=== PATIENT | female | born 1970 | race African-American/Black ===

== ENCOUNTER 2016-09-15 14:14 | Emergency (ER) | payer BC ==
[~2016-09-15] VITALS: Ht 160 cm; Wt 65.3 kg
[~2016-09-15 14:14] MED LIST: AMLO-110 PO; AMOX875T PO; LORA-741 PO; LOSA1TAB PO; MULT-506 PO; OMEP40CA PO; PSEU60TA80 PO; TYLOTC500 PO; [UNRECOGNIZED DRUG - CODE] TOP
[2016-09-15 14:19] VITALS: TEMP 37.1; Ht 160 cm; Wt 65.3 kg
[2016-09-15] MEDS ORDERED: VORT1TAB PO (15:13)
[2016-09-15] MEDS ORDERED: AZAT50TA17 PO (15:13)
[2016-09-15 15:21] LABS: BASO % 0.4 %; BASO ABS # 0.03 K/uL (0-0.2); COMPLETE YES; EOS % 3.3 %; HEMATOCRIT 39.4 % (37-47); IG% 0.3 %; LYMPH % 12.9 %; LYMPH ABS # 1.03 K/uL (1.2-3.4); MEAN CELL VOLUME 92.5 fL (80-100); MEAN CORPUSCULAR HEMOGLOBIN 31.5 pg (25-34); MEAN PLATELET VOLUME 10.1 fL (7.4-10.4); MONO % 10.4 %; NEUT % 72.7 %; PLATELET COUNT 265 K/uL (130-400); RED BLOOD COUNT 4.26 M/uL (4.2-5.4)
[2016-09-15 15:37] LABS: BUN/CREATININE RATIO 8.4 (10-20); CALCIUM 8.2 mg/dl (8.5-10.1); CREATININE 1.6 mg/dl (0.60-1.20); POTASSIUM 3.6 mmol/L (3.5-5.1)
[2016-09-15 15:38] LABS: MANUAL MICROSCOPIC REQUIRED? YES; REVIEW REQ? NO; SULFASALICYLIC ACID NEG (NEG); URINE APPEARANCE CLEAR (CLEAR); URINE COLOR ORANGE
[2016-09-15 15:45] LABS: URINE BACTERIA NEG (NEG)
[2016-09-15 17:31] VITALS: BP 137/95; PULSE 78; O2SAT 97
--- NOTE | 2016-09-15 18:31 | EMERGENCY ROOM VISIT NOTE ---
History Report prepared by Jorge Alberto: Payal Herrera Under the Supervision of: Dr. Shabbir Hall D.O. First contact with patient: 14:37 Chief Complaint: SORETHROAT Stated Complaint: SWELLING ON BOTH SIDES OF FACE, FATIGUE History of Present Illness The patient is a 45 year old female who presents to the Emergency Room with complaints of constant sore throat beginning last night. 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 She complains of tiredness, bilateral facial pain, muscle aches that may not be new , and swelling of the jaw. The patient denies cough, runny nose, fevers, chest pain, shortness of breath, nausea, vomiting, and diarrhea. She reports that she is vaccinated. She notes that she had a urethral stent placed last weak for a fibroid that is pressing on her uterus. The patient states that her doctor wants her to have a hysterectomy but she would like to see other options. She notes that she doesn't think anyone else around her has been sick. Source of History: patient Onset: last night Position: throat Quality: other (sore/swelling) Timing: constant Associated Symptoms: No SOB, No chest pain, No cough, No diarrhea, No fevers , No nausea, No vomiting Note: She complains of tiredness, bilateral facial pain, muscle aches that may not be new, and swelling of the jaw. The patient denies runny nose. Review of Systems See HPI for pertinent positives & negatives. A total of 10 systems reviewed and were otherwise negative. Past Medical & Surgical Medical Problems: (1) BRICK HANDLER demyelination (2) Crohn's disease Family History Cancer Heart disease Hypertension Seizures Social History Smoking Status: Former Smoker Alcohol Use: none Drug Use: none Marital Status: Housing Status: lives with family Occupation Status: employed Current/Historical Medications Scheduled Acetaminophen (Tylenol), 1,000 MG PO UD Amlodipine (Norvasc), 10 MG PO HS Azathioprine (Imuran), 50 MG PO BID Losartan Potassium (Cozaar), 25 MG PO QAM Multivitamin (Multivitamin), 1 TAB PO HS Vortioxetine HBr (Trintellix), 1 TAB PO DAILY Scheduled PRN Lorazepam (Ativan), 0.5 MG PO Q6H PRN for Anxiety/Agitation Allergies Coded Allergies: Sulfa Antibiotics (Verified Allergy, Intermediate, FACIAL SWELLING, 09/15/16 ) Nitrofurantoin (Verified Allergy, Unknown, RASH, 09/15/16) Lisinopril (Verified Adverse Reaction, Unknown, COUGH, 09/15/16) Sertraline (Verified Adverse Reaction, Unknown, BP ELEVATION, 09/15/16) Physical Exam Vital Signs Date Time Temp Pulse Resp B/P Pulse Ox O2 Delivery O2 Flow Rate FiO2 09/15/16 17:31 78 16 137/95 97 09/15/16 15:35 70 18 124/80 100 Room Air 09/15/16 14:31 99 Room Air 09/15/16 14:19 37.1 82 18 133/84 100 Room Air Physical Exam GENERAL: sitting up in bed, no distress, non-toxic EYE EXAM: normal conjunctiva OROPHARYNX: Face swelling over the bilateral parotids and angles of the mandible , no exudate, no erythema, lips, buccal mucosa, and tongue normal and mucous membranes are moist NECK: supple, no nuchal rigidity, no adenopathy, non-tender LUNGS: Clear to auscultation. Normal chest wall mechanics HEART: no murmurs, S1 normal and S2 normal ABDOMEN: abdomen soft, non-tender, normo-active bowel sounds, no masses, no rebound or guarding. BACK: Back is symmetrical on inspection and there is no deformity, no midline tenderness, no CVA tenderness. SKIN: no rashes and no bruising UPPER EXTREMITIES: upper extremities are grossly normal. LOWER EXTREMITIES: No pitting edema. NEURO EXAM: Normal sensorium, cranial nerves II-XII grossly intact, normal speech, no gross weakness of arms, no gross weakness of legs. Medical Decision & Procedures Laboratory Results 09/15/16 15:00 Red Blood Count 4.26, Mean Corpuscular Volume 92.5, Mean Corpuscular Hemoglobin 31.5, Mean Corpuscular Hemoglobin Concent 34.0, Mean Platelet Volume 10.1, Neutrophils (%) (Auto) 72.7, Lymphocytes (%) (Auto) 12.9, Monocytes (%) (Auto) 10.4, Eosinophils (%) (Auto) 3.3, Basophils (%) (Auto) 0.4, Neutrophils # (Auto ) 5.83, Lymphocytes # (Auto) 1.03, Monocytes # (Auto) 0.83, Eosinophils # (Auto ) 0.26, Basophils # (Auto) 0.03 3/5/17 15:00 Test 09/15/16 14:18 09/15/16 14:58 09/15/16 15:00 09/15/16 15:56 Influenza Type A Antigen Neg for Influ A (NEG) Influenza Type B Antigen Neg for Influ B (NEG) Urine Color ORANGE Urine Appearance CLEAR (CLEAR) Urine pH (4.5-7.5) Urine Specific [place] (1.000-1.030) Urine Protein NEG (NEG) Urine Glucose (UA) (NEG) Urine Ketones (NEG) Urine Occult Blood (NEG) Urine Nitrite (NEG) Urine Bilirubin (NEG) Urine Urobilinogen (NEG) Urine Leukocyte Esterase (NEG) Urine RBC 5-10 /hpf (0-4) Urine WBC 1-5 /hpf (0-5) Urine Epithelial Cells 20-30 /lpf (0-5) Urine Bacteria NEG (NEG) White Blood Count 8.00 K/uL (4.8-10.8) Red Blood Count 4.26 M/uL (4.2-5.4) Hemoglobin 13.4 g/dL (12.0-16.0) Hematocrit 39.4 % (37-47) Mean Corpuscular Volume 92.5 fL (80-100) Mean Corpuscular Hemoglobin 31.5 pg (25-34) Mean Corpuscular Hemoglobin Concent 34.0 g/dl (32-36) Platelet Count 265 K/uL (130-400) Mean Platelet Volume 10.1 fL (7.4-10.4) Neutrophils (%) (Auto) 72.7 % Lymphocytes (%) (Auto) 12.9 % Monocytes (%) (Auto) 10.4 % Eosinophils (%) (Auto) 3.3 % Basophils (%) (Auto) 0.4 % Neutrophils # (Auto) 5.83 K/uL (1.4-6.5) Lymphocytes # (Auto) 1.03 K/uL (1.2-3.4) Monocytes # (Auto) 0.83 K/uL (0.11-0.59) Eosinophils # (Auto) 0.26 K/uL (0-0.5) Basophils # (Auto) 0.03 K/uL (0-0.2) RDW Standard Deviation 43.1 fL (36.4-46.3) RDW Coefficient of Variation 12.8 % (11.5-14.5) Immature Granulocyte % (Auto) 0.3 % Immature Granulocyte # (Auto) 0.02 K/uL (0.00-0.02) Anion Gap 11.0 mmol/L (3-11) Est Creatinine Clear Calc Drug Dose 41.2 ml/min Estimated GFR () 45.3 Estimated GFR (Non- 39.1 BUN/Creatinine Ratio 8.4 (10-20) Calcium Level 8.2 mg/dl (8.5-10.1) Laboratory results per my review. ED Course ED COURSE: Vital signs were reviewed and normal The patients medical record was reviewed The above diagnostic studies were performed and reviewed. ED treatments and interventions as stated above. 1438: The patient was evaluated in room A2. A complete history and physical examination was performed. 1541: I spoke to Dr. Samara Anderson. She agrees with the plan. 1725: I updated the patient. 1732: Upon reevaluation, the patient is hemodynamically stable.I discussed my findings with the patient and she understands and agrees with the treatment plan. Based on the patients age, coexisting illnesses, exam and lab findings the decision to treat as an outpatient was made. The patient remained stable while under my care. The patient appeared well at the time of discharge. Medical Decision Differential diagnosis includes etiologies such as sepsis, UTI, pneumonia, metabolic, electrolyte abnormalities, cardiac sources, intracerebral event, toxicologic, neurologic, as well as others were entertained. Patient is a 45-year-old female who presents the ER for bilateral swelling of her face along with a sore throat and myalgias. She notes that this started a couple days goes. She does works at [employer]. On exam patient does have bilateral swelling on the sore throat and his symptoms are consistent with possible mumps. Blood work and vehicle swabs were obtained. I discussed case with Mrs. Hamilton. Patient was instructed that she not leave the house and according to the next 5 days. She should try not to have any contact with her . If her develops any systems he'll return to the ER or PCP. UA was unremarkable. I do not believe that any of the symptoms are related to the recent stent that she had placed on this past Friday. Patient was discharged and will remain quarantined until the results of her testing. Discussed with Pt concerning signs and symptoms to watch out for. Pt was instructed to follow up with their PCP and discussed with the patient their option to return to the ED at anytime for persistent or worsening symptoms. The appropriate anticipatory guidance and out-patient management, including indications for return to the emergency department, were explained at length to the patient and understood. Consults Time Called: 1538 Consulting Physician: Dr. Anderson Returned Call: [address] Samara Anderson. She agrees with the plan. Impression Primary Impression: Mumps Additional Impressions: Parotitis Sore throat Scribe Attestation The scribe's documentation has been prepared under my direction and personally reviewed by me in its entirety. I confirm that the note above accurately reflects all work, treatment, procedures, and medical decision making performed by me. Departure Information Dispostion Home / Self-Care Referrals Nolan Brooks M.D.(FLIP) (PCP) Forms HOME CARE DOCUMENTATION FORM, IMPORTANT VISIT INFORMATION Patient Instructions ED Mumps, My [facility] Additional Instructions Please follow up with your primary care doctor with in the next 24 hours. Any worsening of your symptoms, please return to the ED immediately. Increased swelling of her throat, inability to drink, persistent fevers, or any other concerning signs or symptoms from your standpoint. You should be quarantined/remain away and had no contact with anyone for the next 5 days until your titers come back. You will be contacted by the Department of Health. Please do not have any contact with her either as this could possibly spread virus. If your starts to have any symptoms he should follow-up with his primary care doctor. Problem Qualifiers Primary Impression: Mumps Mumps complication type: without complication Qualified Codes: B26.9 - Mumps without complication
[2017-03-19] MEDS ORDERED: RETIN A TOP (13:11)
== END 2016-09-15 17:33 | disposition home or self-care (01) ==
LOC: C.EDB 14:15 → C.EDA 17:33
DX: B26.9 Mumps without complication (principal); J02.9 Acute pharyngitis, unspecified; R53.83 Other fatigue; R51 Headache; K50.90 Crohn's disease, unspecified, without complications; G37.9 Demyelinating disease of central nervous system, unspecified; Z79.899 Other long term (current) drug therapy; Z88.1 Allergy status to other antibiotic agents; Z88.2 Allergy status to sulfonamides; Z88.8 Allergy status to other drugs, medicaments and biological substances; Z87.891 Personal history of nicotine dependence; Z82.49 Family history of ischemic heart disease and other diseases of the circulatory system; Z82.0 Family history of epilepsy and other diseases of the nervous system

== ENCOUNTER → 2017-02-26 | Outpatient (CLI) | payer BC ==
[~2017-02-26] MED LIST changes: -AMOX875T PO; +AZAT50TA17 PO; +GADAVIST IV PRN; +MTR600X PO; -OMEP40CA PO; +OXYC-57 PO; -PSEU60TA80 PO; +RETIN A TOP; +TRAM-10 PO; +VORT1TAB PO; -[UNRECOGNIZED DRUG - CODE] TOP
--- NOTE | 2017-02-26 18:37 | DIAGNOSTIC IMAGING REPORT ---
BRAIN COMBO CLINICAL HISTORY: WEB WEAVER demyelinating disorder COMPARISON STUDY: 06/05/2016 TECHNIQUE: Utilizing a 1.5 Suki magnet and dedicated coil, multiplanar, multiecho imaging of the brain was performed pre and postcontrast administration. IV administration of 8 mL of Gadavist contrast was uneventful. FINDINGS: Generally improved exam compared to the prior study. The large area of abnormal signal involving the anterior quique, as well as mid Has considerably diminished in overall volume as well as geographic extent. Current maximum linear dimension is 1 cm with a 4 mm enhancing central component. This is considerably diminished from the prior study with the enhancement previously described involving the anterior right frontal lobe essentially resolved.. There is a new right frontal enhancing focus measuring 2 mm. A new focus of cortical increase in signal measuring 9 mm is identified over the right posterior frontal region. This area is associated with 2 enhancing nodules measuring 3 and 4 mm respectively. No additional focal areas of enhancement are appreciated. Sella and parasellar regions are unremarkable. IMPRESSION: 1. Mixed but generally improved appearance as compared to the prior exam. 2. Large area of demyelination involving the pontine medullary region is considerably diminished in volume as well as considerably improved and postcontrast enhancement. 3. Improved medial right frontal lobe lesion which is not currently identified. 4. New interval focus of increased signal posterior right frontal lobe in a cortical location with 2 small associated enhancing foci. 5. New small focus of enhancement right frontal lobe slightly lateral to the prior study. 6. Overall, considerable improvement despite the interval development of several small new foci of demyelination. 7. No abnormal signal characteristics on the diffusion component of the study The above report was generated using voice recognition software. It may contain grammatical, syntax or spelling errors. Electronically signed by: Da Wilhelm M.D. 02/26/2017 6:35 PM Dictated Date/Time: 02/26/2017 6:24 PM
== END | disposition home or self-care (01) ==
LOC: C.MRI 17:27
PROVIDERS: ATTEND Psychiatry & Neurology Neurology
DX: G37.9 Demyelinating disease of central nervous system, unspecified (principal); G93.89 Other specified disorders of brain

== ENCOUNTER 2017-03-28 05:07 | Inpatient (IN) | payer BC ==
[2017-03-19 13:12] VITALS: BMI 25.0
--- NOTE | 2017-03-19 13:48 | PAT Medication Instructions ---
Service Date Mar 19, 2017. Current Home Medication List Acetaminophen (Tylenol), 500 MG PO PRN Amlodipine (Norvasc), 10 MG PO HS Azathioprine (Imuran), 50 MG PO BID Lorazepam (Ativan), 0.5 MG PO Q6H PRN for Anxiety/Agitation Losartan Potassium (Cozaar), 25 MG PO QAM Multivitamin (Multivitamin), 1 TAB PO QPM Vortioxetine HBr (Trintellix), 1 TAB PO QPM [Retin A Cr], 1 DOSE TOP DAILY Medication Instructions For Your Scheduled Surgery - Check with surgeon/prescribing physician for instructions: Azathioprine (Imuran), 50 MG PO BID - Hold the following medications 24 hours prior to surgery: [Retin A Cr], 1 DOSE TOP DAILY - Hold the following medications the morning of surgery: Losartan Potassium (Cozaar), 25 MG PO QAM - Take the following medications the morning of surgery with a sip of water: Lorazepam (Ativan), 0.5 MG PO Q6H PRN for Anxiety/Agitation (if needed) Acetaminophen (Tylenol), 500 MG PO PRN (if needed) - Take the following medications as scheduled the night before surgery: Multivitamin (Multivitamin), 1 TAB PO QPM Lorazepam (Ativan), 0.5 MG PO Q6H PRN for Anxiety/Agitation (if needed) Acetaminophen (Tylenol), 500 MG PO PRN (if needed) Amlodipine (Norvasc), 10 MG PO HS Vortioxetine HBr (Trintellix), 1 TAB PO QPM If you have any questions please call us at [phone] or [phone] or [phone]
[2017-03-19 14:29] LABS: BASO % 0.4 %; BASO ABS # 0.03 K/uL (0-0.2); COMPLETE YES; EOS % 4.5 %; HEMATOCRIT 40.6 % (37-47); IG% 0.1 %; MEAN CELL VOLUME 91.4 fL (80-100); MEAN CORPUSCULAR HEMOGLOBIN 29.7 pg (25-34); MEAN CORPUSCULAR HGB CONC 32.5 g/dl (32-36); MONO % 11.3 %; NEUT % 66.7 %; PLATELET COUNT 331 K/uL (130-400); RED BLOOD COUNT 4.44 M/uL (4.2-5.4); WHITE BLOOD COUNT 7.07 K/uL (4.8-10.8)
[2017-03-19 14:41] LABS: BUN/CREATININE RATIO 8.5 (10-20); CALCIUM 8.8 mg/dl (8.5-10.1); CREATININE 1.5 mg/dl (0.60-1.20); POTASSIUM 4.2 mmol/L (3.5-5.1)
[~2017-03-28] VITALS: Ht 160 cm; Wt 65.2 kg
[2017-03-28] VITALS (11 sets, daily range): BP systolic 94–115; BP diastolic 54–84; PULSE 74–98; TEMP 36.3–37; O2SAT 94–100; Ht 160 cm; Wt 65.2 kg
[~2017-03-28 05:07] MED LIST changes: -GADAVIST IV PRN; -MTR600X PO; -OXYC-57 PO; -TRAM-10 PO
[2017-03-28] MEDS ORDERED: CEFAZOLIN 2000 MG/60 ML D5W 50 ML IV SCH (06:00)
[2017-03-28] MEDS ORDERED: LACTATED RINGER'S 1000ML 1,000 ML IV SCH ×2 (06:00)
[2017-03-28 06:34] LABS: BASO % 0.7 %; BASO ABS # 0.05 K/uL (0-0.2); EOS % 5.2 %; HEMATOCRIT 37.4 % (37-47); IG% 0.1 %; LYMPH % 20.8 %; LYMPH ABS # 1.43 K/uL (1.2-3.4); MEAN CELL VOLUME 89.9 fL (80-100); MEAN CORPUSCULAR HEMOGLOBIN 30.8 pg (25-34); MEAN PLATELET VOLUME 9.3 fL (7.4-10.4); MONO % 8.6 %; NEUT % 64.6 %; PLATELET COUNT 278 K/uL (130-400); RED BLOOD COUNT 4.16 M/uL (4.2-5.4); WHITE BLOOD COUNT 6.89 K/uL (4.8-10.8)
--- NOTE | 2017-03-28 06:40 | History & Physical Bridge Note ---
H&P Re-Evaluation Bridge Note: I have examined the patient, reviewed the History & Physical and in the interval since the performance of the History & Physical I have noted the following changes of clinical significance: No changes noted
[2017-03-28] MEDS ORDERED: ONDANSETRON INJ 2 MG/ML 2 ML VIAL ONE (06:41)
[2017-03-28] MEDS ORDERED: PROPOFOL IV EMULSION 10 MG/ML 20 ML VIAL IV ONE (06:41)
[2017-03-28] MEDS ORDERED: DEXAMETHASONE SOD INJ 4 MG/ML VIAL ONE ×2 (06:41→07:30)
[2017-03-28] MEDS ORDERED: LIDOCAINE HCL 2% 2 ML VIAL (20MG/ML) ONE (06:41)
[2017-03-28] MEDS ORDERED: GLYCOPYRROLATE INJ 0.2 MG/ML VIAL ONE (06:41)
[2017-03-28] MEDS ORDERED: FENTANYL CITRATE INJ 50 MCG/1 ML 2 ML VIAL ONE ×2 (06:41→07:19)
[2017-03-28] MEDS ORDERED: NEOSTIGMINE METHYLSULFATE 5 MG/5 ML SYR ONE (06:41)
[2017-03-28] MEDS ORDERED: MIDAZOLAM HCL 1 MG/ML 2ML VIAL ONE (06:41)
[2017-03-28 06:43] LABS: COMPLETE YES; MEAN CORPUSCULAR HGB CONC 34.2 g/dl (32-36)
[2017-03-28] MEDS ORDERED: EpHEDrine SULFATE INJ 50 MG/ML AMP IV PRN (06:45)
[2017-03-28] MEDS ORDERED: ONDANSETRON INJ 2 MG/ML 2 ML VIAL IV PRN ×2 (06:45→10:00)
[2017-03-28] MEDS ORDERED: FENTANYL CITRATE INJ 50 MCG/1 ML 2 ML VIAL IV PRN (06:45)
[2017-03-28] MEDS ORDERED: ATROPINE SULFATE 0.1 MG/ML 5ML SYR IV PRN (06:45)
[2017-03-28] MEDS ORDERED: METHYLENE BLUE 0.5% 10 ML VIAL ONE (06:52)
[2017-03-28] MEDS ORDERED: BUPIVACAINE 0.5 % 5 MG/1 ML MPF 30ML VIAL ONE (06:52)
[2017-03-28] MEDS ORDERED: MINERAL OIL LIGHT 10 ML BTL ONE (06:52)
[2017-03-28] MEDS ORDERED: EpHEDrine SULFATE 50MG/5ML SYR ONE (07:30)
[2017-03-28] MEDS ORDERED: ESMOLOL HCL 10 MG/ML 10 ML VIAL ONE (07:30)
[2017-03-28] MEDS ORDERED: HYDROmorphone INJ 2 MG/ML SYR/VIAL ONE (07:34)
[2017-03-28] MEDS ORDERED: ROCURONIUM BROMIDE 10 MG/ML 5 ML VIAL IV ONE (07:37)
[2017-03-28] MEDS ORDERED: CISATRACURIUM BESYLATE IV SOLN 2 MG/ML 10 ML VIAL ONE (07:37)
--- NOTE | 2017-03-28 09:58 | [facility] Post Operative Brief Note ---
Immediate Operative Summary Operative Date Mar 28, 2017. Pre-Operative Diagnosis heavy menstrual bleeding; fibroid uterus Post-Operative Diagnosis heavy menstrual bleeding; fibroid uterus Procedure(s) Performed Total Laparoscopic Hysterectomy, Cystoscopy Surgeon Dr. 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 Kadie Egan, Dr. Tafoya Estimated Blood Loss 25mL Findings Upon laparoscopic exam uterus was enlarged from known fibroid uterus. Bilateral ovaries and fallopian tubes were grossly normal. The cervix and uterus was successfully removed laparoscopically an removed from the vagina. Once the vaginal cuff was closed laparoscopically a cystoscopy was performed noting no injury or suture within the bladder wall. Bilateral ureteral openings spilled clear urine indicating bilateral ureters were intact. Patient tolerated the surgery well and was sent to recovery with stable vital signs. Fluids (cc crystalloids) 1400 Specimens A: uterus and cervix Drains Burns to gravity Anesthesia General Complication(s) None Disposition Recovery Room / PACU
[2017-03-28] MEDS ORDERED: BISACODYL 10 MG SUPP PR PRN (10:00)
[2017-03-28] MEDS ORDERED: SENNA 8.6 MG TAB PO PRN (10:00)
[2017-03-28] MEDS ORDERED: IBUPROFEN 600 MG TAB PO PRN (10:00)
[2017-03-28] MEDS ORDERED: LORAZEPAM 0.5 MG TAB PO PRN (10:00)
[2017-03-28] MEDS ORDERED: MAGNESIUM HYDROXIDE SUSP 30 ML UDC PO PRN (10:00)
[2017-03-28] MEDS ORDERED: OXYCODONE/ACETAMINOPHEN 5-325 TAB PO PRN (10:00)
--- NOTE | 2017-03-28 10:37 | OPERATIVE REPORT ---
DATE OF OPERATION: 03/28/2017 PREOPERATIVE DIAGNOSES: 1. Heavy menstrual bleeding. 2. Fibroid uterus. POSTOPERATIVE DIAGNOSES: Same. OPERATIVE PROCEDURE: Total laparoscopic hysterectomy and cystoscopy. SURGEON: Dr. Felipe Mueller. FORENSIC NURSE: Dr. Ghada Egan and Dr. Allan Tafoya. ANESTHESIA: General. ESTIMATED BLOOD LOSS: 25 mL. IV FLUIDS: 1400 mL crystalloids. URINE OUTPUT: 1200 mL clear yellow urine. SPECIMENS: Uterus and cervix to pathology. DRAINS: Burns to gravity. COMPLICATIONS: None. DISPOSITION: Recovery room. OPERATIVE FINDINGS: Upon laparoscopic exam, uterus was enlarged from a known fibroid uterus, measuring approximately 14 cm. Bilateral ovaries and fallopian tubes were grossly normal. The cervix and uterus were successfully removed laparoscopically and removed from the vagina. Once the vaginal cuff was closed laparoscopically, a cystoscopy was performed noting no injury or suture within the bladder wall. Bilateral ureteral openings expelled clear urine, indicating bilateral ureters were intact. The patient tolerated the surgery well and was sent to recovery with stable vital signs. OPERATIVE PROCEDURE IN DETAIL: The patient was taken to the operating room, where general anesthesia was administered. Once anesthesia was found to be adequate, the patient was placed in the dorsal lithotomy position and was prepped and draped in a manner appropriate for procedure. A weighted speculum was placed into the vagina and the anterior lip of the cervix was grasped with single tooth tenaculum. A medium VCare uterine manipulator was placed within the uterus in an anteverted fashion and was suture ligated to the cervix at 12 o'clock and 6 o'clock positions with 0 Vicryl suture. Once the VCare was in place, a single-tooth tenaculum and weighted speculum were removed from the vagina. A sterile Burns catheter was placed within the bladder and remained indwelling throughout the entire procedure. The patient was then ready for the laparoscopic portion of the procedure. Attention was directed towards the abdomen, where 0.5% Marcaine was injected above the umbilicus on the left-sided mid clavicular point and an 11-mm skin incision was made horizontally at the upper left abdominal quadrant. A Veress needle was then placed within the abdomen. Normal saline was injected with no fecal content aspirated. A pneumoperitoneum was then created. The Veress needle was then removed and an 11-mm trocar was placed within the abdomen under direct laparoscopic visualization. A second 11-mm skin incision was made on the left lower side of the abdomen and an 11-mm trocar was placed within the abdomen under direct laparoscopic visualization. A third 11-mm skin incision was made on the right lower side of the abdomen and a third 11-mm trocar was placed within the abdomen under direct laparoscopic visualization. The patient was then placed in a steep Trendelenburg position and the bowel contents were displaced superiorly away from the pelvis. A thorough examination of the abdomen and pelvis was then performed. The uterus was noted to be enlarged from known fibroid uterus. Attention was directed towards the right adnexa, where the right round ligament was cauterized and transected. The right uteroovarian ligament was cauterized and transected, continued inferiorly through the broad ligament, cauterizing and transecting as it continued inferiorly. Attention was then directed towards the left adnexa, in which likewise the left round ligament was cauterized and transected. The left uteroovarian ligament was cauterized and transected, continued inferiorly through the broad ligament cauterizing and transecting as it was continued inferiorly. The broad ligament was and the anterior leaf of the broad ligament was cauterized and transected across the lower uterine segment, creating a bladder flap. The same was done on the right side. The broad ligament was and the anterior leaf of the broad ligament was cauterized and transected, completing the bladder flap across the lower uterine segment. The bladder was pushed away from the uterus. Bilateral ascending uterine arteries were then cauterized and transected, continued inferiorly through the cardinal uterosacral complex bilaterally. Once we were at the level of the VCare, the uterus and cervix were amputated away from the vaginal cuff with the LigaSure in a circumferential manner. Once the cervix and uterus were successfully amputated, it was delivered through the vagina. A sterile glove was then placed within the vagina to maintain the pneumoperitoneum. The pelvis was then copiously irrigated with warm saline solution. Any residual bleeding was fulgurated with the LigaSure. The vaginal cuff was then closed with 0 Polysorb suture with the EndoStitch in a continuous locking fashion. Excellent hemostasis was noted. The peritoneum was then reapproximated with 0 Polysorb suture again with the EndoStitch in a continuous running fashion. Excellent hemostasis was noted. The pelvis was then irrigated again, noting hemostasis. At this point, all instruments were removed from the trocars and as much CO2 gas was allowed to percolate through open cannulas. Attention was then directed towards the perineum, where the sterile glove was removed from the vagina and the Burns catheter was removed from the bladder. The cystoscope was then introduced into the bladder. A thorough examination was performed noting no injury to the bladder wall or suture within the bladder wall as well. Bilateral ureteral openings expelled clear urine, indicating bilateral ureters were intact. At this point, the cystoscope was removed and a second sterile Burns catheter was placed within the bladder. At this point, the procedure was found to be complete. All trocars were removed from the abdomen. The fascia of all 3 incisions were closed with 0 Vicryl suture in a [id number] interrupted fashion. All 3 skin incisions were closed with 4-0 Monocryl in a subcuticular fashion. Excellent hemostasis was noted. The patient tolerated the procedure well and was sent to recovery with stable vital signs. All sponge and instrument counts were found to be correct x2. I attest to the content of the Intraoperative Record and any orders documented therein. Any exceptions are noted below. KENNEDY
--- NOTE | 2017-03-28 10:42 | Anesthesiology Progress Note ---
Anesthesia Post Op Note Date & Time Mar 28, 2017 at 10:42 Vital Signs Pain Intensity: 2 Vital Signs Past 12 Hours Date Time Temp Pulse Resp B/P (MAP) Pulse Ox O2 Delivery O2 Flow Rate FiO2 03/28/17 10:37 36.2 03/28/17 10:35 77 16 108/62 95 03/28/17 10:35 78 16 03/28/17 10:30 74 16 108/60 98 03/28/17 10:30 74 16 03/28/17 10:25 77 13 105/57 94 03/28/17 10:25 77 13 03/28/17 10:20 79 12 03/28/17 10:20 79 12 111/65 97 03/28/17 10:15 81 12 03/28/17 10:15 81 12 105/66 94 03/28/17 10:10 84 13 105/63 96 03/28/17 10:10 83 13 03/28/17 10:08 109/61 03/28/17 10:00 36.1 88 16 119/68 97 Oxymask 10 03/28/17 05:58 36.8 74 16 115/84 (94) 100 Room Air Notes Mental Status: alert / awake / arousable, participated in evaluation Pt Amnestic to Procedure: Yes Nausea / Vomiting: adequately controlled Pain: adequately controlled Airway Patency, RR, SpO2: stable & adequate BP & HR: stable & adequate Hydration State: stable & adequate Anesthetic Complications: no major complications apparent
[2017-03-28] MEDS: LACTATED RINGER'S 1000ML 1,000 ML IV SCH ×2 (15:06→22:57)
[2017-03-28] MEDS ORDERED: TRINTELLIX~ORDER AWAITING ACTION SCH (16:00)
[2017-03-28] MEDS: KETOROLAC TROMETHAMINE 30 MG/ML VIAL IV. PRN (17:42)
[2017-03-28 19:12] LABS: HEMATOCRIT 33.4 % (37-47)
[2017-03-28] MEDS ORDERED: AMLODIPINE BESYLATE 5 MG TAB PO SCH (21:00)
[2017-03-28] MEDS: AZATHIOPRINE 50 MG TAB PO SCH (21:00)
[2017-03-28] MEDS ORDERED: MULTIVITAMIN TAB PO SCH (21:00)
[2017-03-29] MEDS: KETOROLAC TROMETHAMINE 30 MG/ML VIAL IV. PRN (00:14)
[2017-03-29 00:25] VITALS: BP 112/65; PULSE 92; TEMP 37; O2SAT 97
[2017-03-29 04:00] VITALS: BP 107/67; PULSE 86; TEMP 37.1
[2017-03-29 06:48] LABS: BASO % 0.1 %; BASO ABS # 0.01 K/uL (0-0.2); COMPLETE YES; EOS % 0.5 %; HEMATOCRIT 31.6 % (37-47); IG% 0.2 %; LYMPH % 10.4 %; LYMPH ABS # 1.17 K/uL (1.2-3.4); MEAN CELL VOLUME 92.4 fL (80-100); MEAN CORPUSCULAR HGB CONC 33.5 g/dl (32-36); MEAN PLATELET VOLUME 9.8 fL (7.4-10.4); MONO % 8.5 %; NEUT % 80.3 %; PLATELET COUNT 251 K/uL (130-400); RED BLOOD COUNT 3.42 M/uL (4.2-5.4)
[2017-03-29 07:19] LABS: BUN/CREATININE RATIO 6.5 (10-20); CALCIUM 7.8 mg/dl (8.5-10.1); CREATININE 1.3 mg/dl (0.60-1.20)
[2017-03-29 08:00] VITALS: BP 114/76; PULSE 71; TEMP 36.9; O2SAT 95
[2017-03-29] MEDS ORDERED: LOSARTAN POTASSIUM 25 MG TAB PO SCH (09:00)
[2017-03-29] MEDS: AZATHIOPRINE 50 MG TAB PO SCH (09:00)
[2017-03-29] MEDS ORDERED: OXYC-57 PO (09:28)
[2017-03-29] MEDS ORDERED: MTR600X PO (09:28)
[2017-03-29] MEDS ORDERED: TRAM-10 PO (09:52)
--- NOTE | 2017-03-29 09:54 | Surgery Progress Note ---
Surgery Progress Note Date of Service Mar 29, 2017. Subjective Post OP Day: 1 + feeling well, + ambulating, + flatus, + pain controlled Objective Vital Signs: Date Time Temp Pulse Resp B/P (MAP) Pulse Ox O2 Delivery O2 Flow Rate FiO2 03/29/17 08:00 36.9 71 16 114/76 (89) 95 Room Air 03/29/17 08:00 95 Room Air 03/29/17 04:00 37.1 86 18 107/67 (80) Room Air 03/29/17 00:25 97 Room Air 03/29/17 00:25 37.0 92 18 112/65 (81) 97 Room Air 03/28/17 19:45 99 Room Air 03/28/17 19:45 37.0 83 18 109/62 (78) 99 Room Air 03/28/17 16:00 36.5 93 18 97/65 (76) 98 Room Air 03/28/17 15:05 36.4 98 18 103/62 (76) 99 Room Air 03/28/17 15:05 36.4 98 18 103/62 (76) 99 Room Air 03/28/17 15:05 Room Air 03/28/17 13:55 36.5 90 18 94/56 (69) 94 Room Air 03/28/17 13:05 98 Room Air 03/28/17 12:55 36.5 98 18 96/54 (68) 98 Nasal Cannula 2.0 03/28/17 11:55 36.4 88 16 98/55 (69) 98 Nasal Cannula 2.0 03/28/17 11:25 36.3 78 18 99/57 (71) 99 Nasal Cannula 2.0 03/28/17 11:00 95 Nasal Cannula 2.0 03/28/17 10:55 95 Nasal Cannula 2.0 03/28/17 10:55 36.5 79 16 99/56 (70) 95 Nasal Cannula 2.0 03/28/17 10:37 36.2 03/28/17 10:35 77 16 108/62 95 03/28/17 10:35 78 16 03/28/17 10:30 74 16 108/60 98 03/28/17 10:30 74 16 03/28/17 10:25 77 13 105/57 94 03/28/17 10:25 77 13 03/28/17 10:20 79 12 03/28/17 10:20 79 12 111/65 97 03/28/17 10:15 81 12 03/28/17 10:15 81 12 105/66 94 03/28/17 10:10 84 13 105/63 96 03/28/17 10:10 83 13 03/28/17 10:08 109/61 03/28/17 10:00 36.1 88 16 119/68 97 Oxymask 10 Abdomen: non tender, non distended Incision(s): clean, dry, intact Extremities: non-tender, normal inspection, no pedal edema Laboratory Results: Results Past 24 Hours Test 03/28/17 19:03 03/29/17 06:13 Range/Units Hemoglobin 11.6 10.6 12.0-16.0 g/dL Hematocrit 33.4 31.6 37-47 % White Blood Count 11.30 4.8-10.8 K/uL Red Blood Count 3.42 4.2-5.4 M/uL Mean Corpuscular Volume 92.4 80-100 fL Mean Corpuscular Hemoglobin 31.0 25-34 pg Mean Corpuscular Hemoglobin Concent 33.5 32-36 g/dl Platelet Count 251 130-400 K/uL Mean Platelet Volume 9.8 7.4-10.4 fL Neutrophils (%) (Auto) 80.3 % Lymphocytes (%) (Auto) 10.4 % Monocytes (%) (Auto) 8.5 % Eosinophils (%) (Auto) 0.5 % Basophils (%) (Auto) 0.1 % Neutrophils # (Auto) 9.08 1.4-6.5 K/uL Lymphocytes # (Auto) 1.17 1.2-3.4 K/uL Monocytes # (Auto) 0.96 0.11-0.59 K/uL Eosinophils # (Auto) 0.06 0-0.5 K/uL Basophils # (Auto) 0.01 0-0.2 K/uL RDW Standard Deviation 44.3 36.4-46.3 fL RDW Coefficient of Variation 13.2 11.5-14.5 % Immature Granulocyte % (Auto) 0.2 % Immature Granulocyte # (Auto) 0.02 0.00-0.02 K/uL Sodium Level 141 136-145 mmol/L Potassium Level 4.0 3.5-5.1 mmol/L Chloride Level 108 98-107 mmol/L Carbon Dioxide Level 30 21-32 mmol/L Anion Gap 3.0 3-11 mmol/L Blood Urea Nitrogen 8 7-18 mg/dl Creatinine 1.30 0.60-1.20 mg/dl Est Creatinine Clear Calc Drug Dose 50.1 ml/min Estimated GFR () 57.8 Estimated GFR (Non- 49.9 BUN/Creatinine Ratio 6.5 10-20 Random Glucose 98 70-99 mg/dl Calcium Level 7.8 8.5-10.1 mg/dl Assessment & Plan regular diet POD#1 discharged
[2017-03-29 09:58] VITALS: BP 114/76; PULSE 71; TEMP 36.9; O2SAT 95
--- NOTE | 2017-04-11 08:13 | Discharge Summary ---
Discharge Summary Date of Service Apr 11, 2017. Discharge Summary Admission Date: Mar 28, 2017 at 05:55 Discharge Date: Mar 29, 2017 Discharge Disposition: Home Principal Diagnosis: Enlarged Fibroid uterus, Heavy Menstrual bleeding, left hydronephrosis Procedures: Total Laparoscopic hysterectomy, Cystoscopy Medication Reconciliation New Medications: Tramadol (Ultram) 50 Mg Tab 50 MG PO Q4H PRN for Pain, #20 TAB Ibuprofen (Ibuprofen) 600 Mg Tab 600 MG PO Q4H PRN for Pain, TUCKER, Cramping, Edema, #30 TAB 2 Refills Continued Medications: Acetaminophen (Tylenol) 500 Mg Tab 500 MG PO PRN, TAB Amlodipine (Norvasc) 5 Mg Tab 10 MG PO HS, TAB Azathioprine (Imuran) 50 Mg Tab 50 MG PO BID, TAB Lorazepam (Ativan) 0.5 Mg Tab 0.5 MG PO Q6H PRN for Anxiety/Agitation, TAB Losartan Potassium (Cozaar) 25 Mg Tab 25 MG PO QAM, TAB Multivitamin (Multivitamin) Tab 1 TAB PO QPM, TAB Vortioxetine HBr (Trintellix) 5 Mg Tab 1 TAB PO QPM [Retin A Cr] () 1 DOSE TOP DAILY Admission Information HPI (per Admitting provider): Patient is a 46 y/o with a known enlarged fibroid uterus has been having increased heavy bleeding. She has undergone left ureteral stent placement due to left hydronephrosis due to mass effect of the uterus. After much deliberation she has opted to proceed with a hysterectomy. Risks, benefits and alternatives were discussed and informed consent signed. Physical Exam (per Admitting): General Appearance: WD/WN Respiratory/Chest: chest non-tender, lungs clear Cardiovascular: regular rate, rhythm Abdomen/GI: normal bowel sounds, non tender, soft Neurologic/Psych: alert, oriented x 3 Skin: normal color, warm/dry, no rash Hospital Course Patient underwent her scheduled Total laparoscopic hysterectomy and cystoscopy on the day of admission without complications. She was sent to recovery immediately after with stable vital signs. Her postoperative recovery was uneventful. Her scott catheter was removed on the morning of POD # 1. Her diet and activity were advanced as tolerated. Her incisions remained clean, dry and intact. She was discharged home on POD# 1 with discharge instructions. Total time spent on discharge = 30 mins This includes examination of the patient, discharge planning, medication reconciliation, and communication with other providers. Discharge Instructions POST OPERATIVE: BOWEL FUNCTION/MEDICATIONS: 1. Constipation pain and discomfort are the most common complaints 5-7 days after surgery. Points 2-6 address the things that can help. 2. Chewing gum can help stimulate the gut and help improve digestion and motility. 3. Milk of Magnesia 1-2 times per day until return of bowel function. 4. Colace is a stool softener that helps. Taking this 2-3 times per day until bowel function returns to normal is highly recommended. 5. Dulcolax is a laxative that may be used if several days have passed without a bowel movement. Alternatively Miralax may be used daily instead. 6. Drink plenty of fluids as this will also reduce constipation. 7. Narcotic pain medications will be prescribed by your physician. They are safe to use and we encourage you to use them. If you are not allergic, ibuprofen will also be prescribed. Many patients will be able to transition off of the narcotic medications to ibuprofen by postoperative day 3. ACTIVITY RECOMMENDATIONS: 1. Get plenty of rest and listen to your body. If you are tired, take a nap. 2. You may shower, but do not take a tub bath until you see your doctor at the 2 week post operative visit. 3. Absolutely NO intercourse and nothing in the vagina until you are examined by your doctor at the 6 week visit. At that visit it will be determined when such activities can be resumed. This can range from 6-12 weeks after your surgery depending on healing time. 4. The main physical activity in the first week should be walking. By the second week you can slowly increase activity. There are no limits on walking up and down stairs. 5. Do not lift more than 5-10 lbs for 4 weeks. Remember the "one-handed rule", i.e. if you can lift something with only one hand it's likely okay. 6. Minimize sounding device operator like vacuuming and exercising for 4 weeks. "Overdoing it" can lead to incisions not healing, pain and vaginal bleeding , so again, listen to your body. 7. Driving can be resumed when you feel able. Do not drive within 24 hours of taking a narcotic medication. EXPECTATIONS: 1. Vaginal spotting, bleeding and discharge are common after surgery. There may even be an odor to the discharge which is often related to sutures used in the vagina. If you experience heavy vaginal bleeding, call the office number day or night [phone]. 2. Bladder discomfort is common after surgery from the catheter. This usually resolves in 1-2 weeks. 3. By the end of the 3rd or 4th week you should be feeling much better. It may take up to 6 weeks for your energy levels to return to normal. 4. Narcotic medications have side effects such as: dizziness, headache, nausea and/or vomiting. If you suspect your pain medication is causing problems, call our office and we may be able to prescribe an alternate medication. 5. The skin incisions are often covered with a liquid bandage. This will gradually peel off over time. CALL THE OFFICE IF YOU HAVE ANY OF THE FOLLOWIN. Temperature of 101 degrees or higher. 2. Severe abdominal or pelvic pain not relieved by pain medication. 3. Persistent nausea or vomiting. 4. Increased pain with urination or difficulty urinating. 5. Bright red bleeding that soaks more than 1 pad per hour. CONTACT PHONE NUMBERS: Main Office: [phone] FOLLOW-UP: Post-Operative Appointments: * Individual instructions will have been given about the timing of your first examination, but this is usually at the end of the second week home. * You will need to call the office at [phone] soon after discharge to make the appointment for your post-op check-up if it has not already been scheduled. * Additional information regarding activity, sexual intercourse and when to return to work will be given at this appointment. WE WISH YOU A SPEEDY RECOVERY!
== END 2017-03-29 10:45 | disposition home or self-care (01) | DRG 742 ==
LOC: C.ACU 05:07 → C.MS4N 05:55 → ENRESERV 10:36
PROVIDERS: ADMIT Obstetrics & Gynecology; ATTEND Obstetrics & Gynecology
PROC: 0UT94ZZ Resection of Uterus, Percutaneous Endoscopic Approach (ICD-10-PCS; principal; 2017-03-28 07:00)
PROC: 0UTC4ZZ Resection of Cervix, Percutaneous Endoscopic Approach (ICD-10-PCS; principal; 2017-03-28 07:00)
PROC: 0TJB8ZZ Inspection of Bladder, Via Natural or Artificial Opening Endoscopic (ICD-10-PCS; principal; 2017-03-28 07:00)
DX: D25.9 Leiomyoma of uterus, unspecified (principal); N13.2 Hydronephrosis with renal and ureteral calculous obstruction; G37.9 Demyelinating disease of central nervous system, unspecified; I12.9 Hypertensive chronic kidney disease with stage 1 through stage 4 chronic kidney disease, or unspecified chronic kidney disease; N92.0 Excessive and frequent menstruation with regular cycle; G43.909 Migraine, unspecified, not intractable, without status migrainosus; M54.2 Cervicalgia; M54.5 Low back pain; N18.3 Chronic kidney disease, stage 3 (moderate); M54.10 Radiculopathy, site unspecified; D47.2 Monoclonal gammopathy; F32.9 Major depressive disorder, single episode, unspecified; F41.9 Anxiety disorder, unspecified; Z86.73 Personal history of transient ischemic attack (TIA), and cerebral infarction without residual deficits; Z79.899 Other long term (current) drug therapy

== ENCOUNTER 2019-11-13 17:05 | Inpatient (IN) ==
[2019-11-13] MEDS ORDERED: DiphenhydrAMINE HCL 50 MG/ML VIAL IV STA (17:42)
[2019-11-13] MEDS ORDERED: METOCLOPRAMIDE HCL INJ 5 MG/ML 2 ML VIAL IV STA (17:42)
[2019-11-13] MEDS ORDERED: SODIUM CHLORIDE 0.9% 1000ML 1,000 ML IV ONE (17:42)
[2019-11-13] MEDS ORDERED: KETOROLAC TROMETHAMINE 15 MG/ML VIAL IV ONE (17:42)
[2019-11-13 17:55] LABS: Basophils # (auto) 0.03 K/uL (0-0.2); Basophils % (auto) 0.3 %; Eosinophils # (auto) 0.32 K/uL (0-0.5); Eosinophils % (auto) 3.6 %; Hematocrit (blood only) 38.9 % (37-47); Hemoglobin 13.1 g/dL (12.0-16.0); Immature Granulocytes # (auto) 0.01 K/uL (0.00-0.02); Immature Granulocytes % (auto) 0.1 %; Lymphocytes # (auto) 1.37 K/uL (1.2-3.4); Lymphocytes % (auto) 15.6 %; Mean Corpuscular Hemoglobin 30.6 pg (25-34); Mean Corpuscular Hgb Conc 33.7 g/dL (32-36); Mean Corpuscular Volume 90.9 fL (80-100); Mean Platelet Volume 9.7 fL (7.4-10.4); Monocytes # (auto) 0.59 K/uL (0.11-0.59); Monocytes % (auto) 6.7 %; Neutrophils # (auto) 6.49 K/uL (1.4-6.5); Neutrophils % (auto) 73.7 %; Platelet Count 258 K/uL (130-400); RDW Coefficient of Variation 13.6 % (11.5-14.5); RDW Standard Deviation 44.8 fL (36.4-46.3); Red Blood Count 4.28 M/uL (4.2-5.4); White Blood Count 8.81 K/uL (4.8-10.8)
--- NOTE | 2019-11-13 18:16 | Emergency Department Note ---
Impression & Plan Right sided numbness, Headache ED Provider Note NAME: GAY SOARES AGE: 49 SEX: F ARRIVES VIA: Walk-In INFORMANT: [Patient] ED PROVIDER(S): Jayant Taylor MD CHIEF COMPLAINT: Right-sided numbness PLAN: Disposition: Admitted Condition: [Good] MEDICAL DECISION MAKING: Patient presented with new neurologic symptoms. She is had intermittent headaches as well. He had no fever or meningeal findings. She was treated with IV Toradol, Reglan, Benadryl and fluids. She also received Ativan for MR imaging. Blood work was unremarkable. MR imaging of the head, neck and thoracic spine were abnormal as noted in the EMR. I did consult with Dr. Thomson of neurology. The patient should be admitted for further work-up. He did recommend IV Solu-Medrol 1 g tonight. I did consult with the [facility] hospitalist. The patient was evaluated in the ER and admitted for further treatment. Triage Nursing notes reviewed and agree them. Vital Signs: reviewed and remarkable for [no significant abnormalities] Differential diagnosis: Migraine headache, ADEM, CVA, MS, meningitis, sinusitis, CO exposure, ICH, SAH, infection, tumor, headache, sinus thrombosis, arterial dissection, as well as other pathologies. ER treatment provided: IV Reglan IV normal saline IV Benadryl IV Toradol IV Ativan IV Solu-Medrol Diagnostics interpreted by me: ECG: [none] Cardiac Monitoring: Cardiac monitoring ordered by me: The patient was placed on continuous cardiac monitoring and observed. It revealed a normal sinus rhythm at 92 beats per minute without ectopy or evidence of dysrhythmia. Laboratory studies: [See below] unremarkable CBC and chemistry panel. Imaging studies: MR imaging of the head and cervical spine reveal several areas of increased signal uptake which are new findings. Thoracic spine did not reveal any spinal cord abnormalities. I refer you to the EMR for further details. Consultation(s): Dr. Thomson of [facility] neurology Dr. Forman of the [facility] service. HPI: The patient is a 49 year old female who presents to the Emergency Room with complaints of right-sided numbness. This started last night and has been intermittent she noted it occurred after her ED discharge yesterday for left- sided numbness. She had right-sided numbness that came and went around 8:30 PM and then early this morning at 3:30 AM. They lasted less than 1 hour. She then noted another episode just prior to arrival. She still feels numbness and tingl ing on the right arm, face and leg. She feels right leg weakness.. The patient also notes the following associated symptoms, headache. The patient has a history of migraines and occasionally has them with the neurologic symptoms. The patient has found no relieving factors. Current pain is rated as 5/10. Patient had a CT angiogram of the head and neck done yesterday which did not reveal any acute intracranial or vascular findings. Pt denies LOC, fevers, chills, diaphoresis, visual changes, neck pain, chest pain, breathing difficulties, nausea, vomiting, abdominal pain, back pain, melena, hematochezia, urinary symptoms, lymphadenopathy, rash, or other complaints. ROS: See above HPI for pertinent positives & negatives. A total of [10] systems reviewed and were otherwise negative. PAST MEDICAL HISTORY:[See Below] ADEM, CVA PAST SURGICAL HISTORY:[See Below] FAMILY HISTORY:[See Below] SOCIAL HISTORY:[See Below] HOME MEDICATIONS:[See Below] ALLERGIES:[See Below] VITALS:[See Below] PHYSICAL EXAMINATION: GENERAL: Awake, alert, well appearing, no distress HENT: Normocephalic, atraumatic. TM's normal. Oropharynx unremarkable. EYES: PERRL. EOMI. Normal conjunctiva. Sclera non-icteric. NECK: Supple. Normal inspection. Non-tender. No nuchal rigidity. FROM. No bruit. RESPIRATORY: Breath sounds equal. No wheezes. No rhonchi. Normal respiratory effort. CARDIAC: Normal rate. Regular rhythm. No murmurs. No rubs. No JVD. GI: Soft, non distended. No tenderness to palpation. No rebound or guarding. No masses. RECTAL: Deferred. MUSCULOSKELETAL: Unremarkable. No edema. No discoloration. Gross motor strength symmetric. NEURO: Cranial nerves 2-12 grossly intact except for subjective tingling in the right face. Normal sensorium. Subjective tingling in the right hand, ulnar aspect as well as the right lower extremity. There is mild right lower extremity weakness. Speech normal. No pronator drift. Normal rapid alternating movements. SKIN: No rash or jaundice noted. LYMPH: No adenopathy. ED COURSE: [Critical Care:] [None] Jayant Taylor MD Past Med/Surg History Social History Feels Safe at Home: Yes Smoking Status: Former smoker Hx Alcohol Use: No Hx Substance Use: No Allergies Allergies Allergy/AdvReac Type Severity Reaction Status Date / Time Sulfa (Sulfonamide Allergy Intermediate FACIAL Verified 11/13/19 22:47 Antibiotics) SWELLING nitrofurantoin Allergy Unknown RASH Verified 11/13/19 22:47 lisinopril AdvReac Unknown COUGH Verified 11/13/19 22:47 sertraline AdvReac Unknown Hypertensio Verified 11/13/19 22:47 n Home Meds Home Medications Medication Instructions Recorded Confirmed acetaminophen [Tylenol Extra 500 - 1,000 mg PO Q6H PRN 10/12/19 11/13/19 Strength] amlodipine 5 mg PO HS 10/12/19 11/13/19 azathioprine 50 mg PO BIDM 10/12/19 11/13/19 cholecalciferol (vitamin D3) 1,000 unit PO QAM 10/12/19 11/13/19 [Vitamin D3] lorazepam 0.5 mg PO Q2D PRN 10/12/19 11/13/19 losartan 12.5 mg PO QAM 10/12/19 11/13/19 multivitamin 1 tab PO DAILY 10/12/19 11/13/19 vortioxetine [Trintellix] 5 mg PO DAILY 10/12/19 11/13/19 aspirin [Aspir-81] 81 mg PO QAM 11/12/19 11/13/19 fluticasone propionate [Flonase 2 spray INTRANASAL DAILY PRN 11/12/19 11/13/19 Allergy Relief] Results & Data (ED) Vital Signs Vital Signs - 24 hr 11/13/19 17:07 11/13/19 17:49 11/13/19 22:46 Temperature 36.8 C Temperature Source Oral Pulse Rate 95 H Pulse Rate [Finger] 105 H Respiratory Rate 19 20 Respiratory Effort / Characteristics Non-Labored Spontaneous Respiratory Depth Normal Blood Pressure 155/102 H Blood Pressure [Left Arm] 132/88 Blood Pressure Mean 119 Blood Pressure Mean [Left Arm] 102 Blood Pressure Position Sitting Pulse Oximetry 99 98 98 Oxygen Delivery Method Room Air Room Air Room Air Sepsis Recent Fever Within 48 Hours No Sepsis Action Taken by Nursing No Action Required Laboratory Data Result diagrams: 11/13/19 17:45 11/13/19 17:45 Lab Results 11/13/19 11/13/19 Range/Units 17:45 17:45 WBC 8.81 (4.8-10.8) K/uL RBC 4.28 (4.2-5.4) M/uL Hgb 13.1 (12.0-16.0) g/dL Hct 38.9 (37-47) % MCV 90.9 (80-100) fL MCH 30.6 (25-34) pg MCHC 33.7 (32-36) g/dL RDW Std Deviation 44.8 (36.4-46.3) fL RDW Coeff of Ivonne 13.6 (11.5-14.5) % Plt Count 258 (130-400) K/uL MPV 9.7 (7.4-10.4) fL Immature Gran % (Auto) 0.1 % Neut % (Auto) 73.7 % Lymph % (Auto) 15.6 % [place] % (Auto) 6.7 % Eos % (Auto) 3.6 % Baso % (Auto) 0.3 % Immature Gran # (Auto) 0.01 (0.00-0.02) K/uL Neut # (Auto) 6.49 (1.4-6.5) K/uL Lymph # (Auto) 1.37 (1.2-3.4) K/uL [place] # (Auto) 0.59 (0.11-0.59) K/uL Eos # (Auto) 0.32 (0-0.5) K/uL Baso # (Auto) 0.03 (0-0.2) K/uL Sodium 138 (136-145) mmol/L Potassium 3.6 (3.5-5.1) mmol/L Chloride 104 (98-107) mmol/L Carbon Dioxide 29 (21-32) mmol/L Anion Gap 4.0 (3-11) BUN 10 (7-18) mg/dl Creatinine 1.38 H (0.6-1.2) mg/dl Est Cr Clr Drug Dosing 47.7 ml/min Est GFR ( Amer) 52.6 Est GFR (Non-Af Amer) 45.4 BUN/Creatinine Ratio 7.5 L (10-20) Glucose 90 (70-99) mg/dl Calcium 8.8 (8.5-10.1) mg/dl Total Bilirubin 0.2 (0.2-1) mg/dl AST 15 (15-37) U/L ALT 20 (12-78) U/L Alkaline Phosphatase 68 (45-117) U/L Total Protein 7.5 (6.4-8.2) gm/dl Albumin 3.6 (3.4-5.0) gm/dl Globulin 3.9 (2.5-4.0) gm/dl Albumin/Globulin Ratio 0.9 (0.9-2) Specimen Hemolysis Administered Medications Discontinued Medications Diphenhydramine HCl (Benadryl) 25 mg IV NOW STA Stop: 11/13/19 17:43 Last Admin: 11/13/19 18:09 Dose: Not Given Documented by: [id number] Sodium Chloride (Nss 1000ml) 1,000 mls @ 999 mls/hr IV .Q1H1M ONE Stop: 11/13/19 18:42 Last Infusion: 11/13/19 19:10 Dose: 0 mls/hr Documented by: [id number] Admin: 11/13/19 17:56 Dose: 999 mls/hr Documented by: [id number] Lorazepam (Ativan) 0.5 mg in 1 mls @ 1 mls/min IV NOW STA Stop: 11/13/19 19:39 Last Admin: 11/13/19 19:39 Dose: Not Given Documented by: [id number] Methylprednisolone 1,000 mg/ (Dextrose) 266 mls @ 266 mls/hr IV NOW STA Stop: 11/14/19 00:00 Last Admin: 11/13/19 23:27 Dose: 266 mls/hr Documented by: [id number] Ketorolac Tromethamine (Toradol) 10 mg IV NOW ONE Stop: 11/13/19 17:43 Last Admin: 11/13/19 17:56 Dose: 10 mg Documented by: [id number] Lorazepam (Ativan) Confirm Administered Dose 2 mg .ROUTE .STK-MED ONE Stop: 11/13/19 19:23 Last Increment: 11/13/19 19:33 Dose: 0.5 mg Documented by: [id number] Metoclopramide HCl (Reglan) 10 mg IV NOW STA Stop: 11/13/19 17:43 Last Admin: 11/13/19 17:56 Dose: 10 mg Documented by: [id number] Discharge Plan Visit Data Chief Complaint: Stroke/CVA Symptoms Stated Complaint: NUMBESS AND TINGLING ED Provider: Jayant Taylor Discharge Problem: Right sided numbness, Headache Forms Stand Alone Forms: [facility] Prescriptions Prescriptions: No Action aspirin [Aspir-81] 81 mg Tablet,Delayed Release (Dr/Ec) 81 mg PO QAM RF: 0 fluticasone propionate [Flonase Allergy Relief] 50 mcg/actuation [place],Suspension 2 spray INTRANASAL DAILY PRN (Reason: Allergy Symptoms) RF: 0 multivitamin Tablet 1 tab PO DAILY RF: 0 azathioprine 50 mg tablet 50 mg PO BIDM RF: 0 acetaminophen [Tylenol Extra Strength] 500 mg Tablet 500 - 1,000 mg PO Q6H PRN (Reason: Fever Or Pain) RF: 0 lorazepam 0.5 mg tablet 0.5 mg PO Q2D PRN (Reason: Anxiety) RF: 0 amlodipine 10 mg tablet 5 mg PO HS RF: 0 losartan 25 mg tablet 12.5 mg PO QAM RF: 0 Trintellix 5 mg tablet 5 mg PO DAILY RF: 0 cholecalciferol (vitamin D3) [Vitamin D3] 25 mcg (1,000 unit) Capsule 1,000 unit PO QAM RF: 0
[2019-11-13 18:18] LABS: Albumin Globulin Ratio 0.9 (0.9-2); Albumin Level 3.6 gm/dl (3.4-5.0); BUN Creatinine Ratio 7.5 (10-20); Bilirubin,Total 0.2 mg/dl (0.2-1); Calcium 8.8 mg/dl (8.5-10.1); Creatinine Clr Calc Pharmacy 47.7 ml/min; Est GFR (African American) 52.6; Est GFR (Non-African American) 45.4; Globulin 3.9 gm/dl (2.5-4.0); Potassium 3.6 mmol/L (3.5-5.1); Total Protein 7.5 gm/dl (6.4-8.2)
[2019-11-13] MEDS ORDERED: LORazepam 2 MG/4 ML VIAL ONE (19:22)
[2019-11-13] MEDS ORDERED: LORazepam 0.5 MG/1 ML VIAL IV STA (19:38)
--- NOTE | 2019-11-13 22:12 | Magnetic Resonance Report ---
MR cervical spine wo/w con CLINICAL HISTORY: Pain, right arm numbness, right lower extremity weakness. TECHNIQUE: Sagittal and axial T1, T2 and STIR images were obtained. Images were acquired before and a fter the administration of 7.5 cc of intravenous Gadavist. COMPARISON STUDY: October 2015 There are no suspicious areas of marrow replacement. No intrinsic cervical cord lesions are visualize d. Note is made of old bilateral cerebellar infarcts. There is also focus of increased T2 signal within the posterior quique which demonstrates postcontrast enhancement. C2-3: There is no evidence of disc bulge or focal herniation. There is no spinal or foraminal stenosi s. C3-4: There is no evidence of disc bulge or focal herniation. There is no spinal or foraminal stenosi s. C4-5: There are no disc bulges or focal herniations. There is no spinal or foraminal stenosis. C5-6 :There is a central disc protrusion, slightly asymmetric to the left. There is effacement of the anterior subarachnoid space. There is minor spinal canal narrowing. There is mild bilateral foramina l narrowing C6-7: There is a left paracentral disc protrusion with effacement of the anterior thecal sac. There i s mild spinal canal narrowing. There is mild bilateral foraminal narrowing C7-T1: There is no evidence of disc bulge or focal herniation. There is no evidence of spinal or fora merlyn stenosis. Postcontrast images reveal no CT pathologic cervical cord enhancement. As stated above, there is a sm all enhancing focus within the posterior quique. This is slightly larger than on the prior 2016 study. IMPRESSION: 1. No foci of abnormal signal or enhancement within the cervical cord 2. Persistent disc protrusions at the C5-C6 and C6-7 levels, similar to the preceding study 3. Old cerebellar infarcts, similar to the preceding study 4. Slight increase in the size of the focus of increased T2 signal within the posterior quique with sli ght increase in postcontrast enhancement. The enhancing focus measures 4 mm compared with 2 mm in the preceding study. ACT 112: Negative or not required by law. Electronically signed by: Amos Toney M.D. 11/13/2019 10:11 PM
--- NOTE | 2019-11-13 22:14 | Magnetic Resonance Report ---
MR thoracic spine wo/w con CLINICAL HISTORY: headache, right arm numb RLE weak COMPARISON STUDY: May 2015 FINDINGS: Images were acquired in the axial and sagittal planes, before and after the administration of 7.5 cc of Optiray 320. There are no suspicious areas of marrow replacement. No intrinsic or extrinsic cord lesions are visualized. There is no spinal stenosis. There are minor multilevel degenerative changes. There is no evidence for pathologic cord enhancement. IMPRESSION: No significant abnormalities identified. No thoracic cord lesions identified. No evidenc e of pathologic cord enhancement. ACT 112: Negative or not required by law. Electronically signed by: Amos Toney M.D. 11/13/2019 10:13 PM
--- NOTE | 2019-11-13 22:28 | Magnetic Resonance Report ---
MRI OF THE BRAIN WITHOUT AND WITH IV CONTRAST CLINICAL HISTORY: headache, right arm numb RLE weak COMPARISON STUDY: MRI the brain dated 10/12/2019, MRI the brain dated 02/26/2017 TECHNIQUE: MRI of the brain was performed from the vertex to the skull base utilizing various T1 and T2 weighted sequences. Following the IV administration of 7.5 mL of Gadavist contrast, additional enh anced images were obtained. FINDINGS: Sagittal T1, axial diffusion, proton density and T2 weighted axial, coronal FLAIR, and pre and post a xial T1-weighted images were acquired. These were supplemented with post gadolinium coronal T1 weight ed images. No intra or extra-axial mass lesions are visualized. Axial diffusion-weighted images reveal no evidence of acute or subacute infarction. There is no evidence of ventricular dilatation. Proton density T2-weighted and FLAIR images reveal old bilateral cerebellar infarcts. There are no abnormal flow voids. There is resolution of the previously identified right frontal and left frontal subcortical white matter lesions. There is interval development of a 5 mm subcortical ri ght frontal lobe focus of increased FLAIR signal There is a 4 mm focus of increased T2 signal within the posterior central quique. This remains unchanged. Postcontrast images reveal a persistent focus of enhancement within the posterior quique. This appears slightly smaller than on the prior study currently measuring 3 mm. Of note that this enhancing lesion measured 8 mm in May 2016. Since the prior study, the patient has developed diffuse slightly no dular leptomeningeal enhancement. IMPRESSION: 1. Old bilateral cerebellar infarcts 2. No evidence of acute or subacute infarction 3. Interval resolution of previous identified frontal subcortical white matter lesions, with interval development of a new 5 mm focus of subcortical right frontal lobe increased T2 and FLAIR signal 4. Interval development of diffuse slightly nodular leptomeningeal enhancement. Diagnostic considerat ions should include neurosarcoid, metastatic disease, and meningitis. 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 Clini shama correlation follow-up is advocated. ACT 112: Negative or not required by law. Electronically signed by: Amos Toney M.D. 11/13/2019 10:27 PM
[2019-11-13] MEDS ORDERED: methylPREDNISolone 1,000 MG in DEXTROSE 5% 250 ML IV STA (23:01)
[2019-11-14] MEDS ORDERED: FLUTICASONE PROPIONATE NA SPR 16 GM BTL PRN (01:13)
[2019-11-14] MEDS ORDERED: LORazepam 0.5 MG TAB PO PRN (01:13)
[2019-11-14] MEDS ORDERED: ACETAMINOPHEN 325 MG TAB PO PRN (01:13)
[2019-11-14] MEDS ORDERED: ONDANSETRON INJ 2 MG/ML 2 ML VIAL IV PRN (01:13)
[2019-11-14] MEDS ORDERED: NITROGLYCERIN SL 0.4 MG/TAB TAB SL PRN (01:13)
[2019-11-14] MEDS: TRINTELLIX~ORDER AWAITING ACTION SCH ×2 (08:05→15:07)
[2019-11-14] MEDS: LOSARTAN POTASSIUM 25 MG TAB PO SCH (08:07)
[2019-11-14] MEDS: ASPIRIN 81 MG ECTAB PO SCH (08:07)
[2019-11-14] MEDS: MULTIVITAMIN TAB PO SCH (08:07)
[2019-11-14] MEDS: CHOLECALCIFEROL 1,000 UNITS 25 MCG TAB PO SCH (08:08)
[2019-11-14] MEDS: azaTHIOprine 50 MG TAB PO SCH ×2 (08:08→15:35)
[2019-11-14] MEDS ORDERED: IOVERSOL 100ml IV PRN (09:16)
--- NOTE | 2019-11-14 09:28 | History and Physical Report ---
DATE OF ADMISSION: 11/14/2019 CHIEF COMPLAINT: Right-sided numbness. HISTORY OF PRESENT ILLNESS: This is a 49-year-old female with past medical history significant for nonallergic rhinitis, recurrent sinus infections, prolonged QT interval, hypertension, regional enteritis, chronic kidney disease stage III, SANITARY NAPKIN MACHINE TENDER demyelinating disease, migraine without aura , ACEI intolerance, history of TIA, who lives with her , presents with right-sided numbness. The patient says since she had a left sinus surgery few years ago, she was having this kind of feeling on and off and she was on Imuran for that, but when it flares only steroids worked for her. She was in the ER yesterday with left-sided numbness and imaging studies with a CTA of the head and neck and also CT of the head was done which was unremarkable and she was sent home to follow as outpatient with Neurology, but again at home in the morning, she again had some right-sided numbness in wagon driller and also late in the evening. One time she felt some numbness in the whole of her face, in the mouth and also going to right and left side. Again in the evening, the numbness in the right side, tongue and in her throat which prompted her to come to the ER again. This time brain, thoracic and cervical spine MRI was done which was showing diffuse slightly nodular leptomeningeal enhancement, also increased T2 signal within the posterior quique, with slight increase in post contrast enhancement. ER contacted the Neurology and recommended to give 1 gram of Solu-Medrol, which the patient is getting now. Currently numbness is improved, resting comfortably and hemodynamically stable. Has some headache, denies dizziness, no blurred vision, no earache, no runny nose, no sore throat. When she is having episodes, she has some difficulty speaking and difficulty swallowing. currently no short of breath, no chest pain, no cough, no fever, no chills, no nausea, no abdominal pain. Normal bowel and bladder movements. No hematuria, hematochezia or black stools. No swelling in the legs, no rash. Ambulates okay. ALLERGIES: LISINOPRIL, NITROFURANTOIN, SERTRALINE, SULFA ANTIBIOTICS. PAST MEDICAL HISTORY: As mentioned above. PAST SURGICAL HISTORY: Benign breast lesion excision, colonoscopy, EGDs, gastric biopsy, Bartolomew's cyst left side drained and catheter placed, benign cyst removed from the right breast, septoplasty, total abdominal hysterectomy. MEDICATIONS: The patient is on aspirin 81 mg p.o. daily, Tylenol p.r.n., amlodipine 5 mg p.o. at bedtime, azathioprine 50 mg p.o. b.i.d., vitamin D 1000 units p.o. a.m., Flonase 2 sprays intranasal daily p.r.n., Ativan 0.5 mg p.o. daily p.r.n., losartan 12.5 mg p.o. daily, multivitamin 1 tablet p.o. daily, Trintellix 5 mg p.o. daily. FAMILY HISTORY: Significant for aunt has lung cancer, asthma. Father has hypertension. Mother has hypertension, anxiety. Brother has anxiety. SOCIAL HISTORY: , lives with her . No smoking, alcohol occasionally. No drug use. REVIEW OF SYMPTOMS: As per HPI. Rest of review of systems negative. PHYSICAL EXAMINATION: GENERAL: The patient is of moderate build, not in acute distress. VITAL SIGNS: Temperature 37, pulse 104, respiratory rate 18, blood pressure 111/61, oxygen 93% on room air. HEENT: No pallor, no icterus. Pupils equal, round, reactive to light. NECK: Supple. CARDIOVASCULAR: S1, S2 heard, regular rate and rhythm, no murmur, no gallop. RESPIRATORY SYSTEM: Normal AP diameter. No accessory muscle use. No wheezing, no crackles. ABDOMEN: Soft, bowel sounds present, nontender, nondistended. CENTRAL NERVOUS SYSTEM: Alert and oriented. Power 5/5 in all extremities. No pronator drift. Coordination of movements normal. Sensation is intact. Position sense intact. EXTREMITIES: No edema, no erythema. LABORATORY DATA: WBC 8.8, hemoglobin 13.1, hematocrit 38.9, platelets 258. Sodium 138, potassium 3.6, chloride 104, bicarbonate 29, BUN 10, creatinine 1.3, serum glucose 90, calcium 8.8, total bilirubin 0.2, AST 15, ALT 20, alkaline phosphatase 68. Brain MRI old bilateral cerebral infarcts. No evidence of acute or subacute infarction. Interval resolution of previous and current frontal subcortical white matter lesions. Interval development of new 5-mm focus of subcortical right frontal lobe, increased T2 and FLAIR signal, interval development of diffuse right nodular leptomeningeal enhancement. Cervical spine MRI, No abnormal signal enhancement within the cervical cord, persistent disc protrusions at C5-C6 and C6-C7 level similar to the preceding study. Old cerebellar infarct similar to the preceding study. Slight increase in the size of focus of increased T2 signal within the posterior quique with slight increase with post contrast enhancement, Thoracic spine MRI, no significant abnormality identified or thoracic cord lesions identified. No evidence of pathological cord enhancement. EKG done on 11/12/2019, normal sinus rhythm, rate of 69, no significant change was found. ASSESSMENT AND PLAN: This 49-year-old female who presents with ongoing alternating left and right sided weakness. 1. Right-sided numbness, had left sided numbness yesterday. Imaging CTA of the head and neck were done which were unremarkable . Neurology was notified about right sided numbness and recommended MRI scan.. MRI scan shows some post contrast enhancement in the leptomeningeal and quique lesion. She was started on Solu-Medrol 1 gram as per neurology recommendation. Plan for LP. Admit to med/surg tele and monitor and consult Neurology for further recommendations. 2. Chronic kidney disease stage III, baseline creatinine 1.3. We will follow the labs in a.m. 3. History of migraine, currently stable. 4. History of hypertension, on amlodipine and losartan, we will follow her blood pressure. 5. History of prolonged QT interval, QTC was ok on EKG done yesterday. 6. History of transient ischemic attack, on aspirin. 7. Deep vein thrombosis prophylaxis, sequential compression devices. DISPOSITION: Closely monitor in med/surg tele. Level 1 full code. Expect discharge home and follow with family doctor and Neurology. KENNEDY
--- NOTE | 2019-11-14 09:41 | CT Scan Report ---
CT chest wo/w con HISTORY: Weakness. Dyspnea. R/O mass,Sarcoidosis TECHNIQUE: Multiaxial CT images of the chest performed both before and after the intravenous administ ration of contrast. COMPARISON STUDY: Chest CT 01/09/2015. FINDINGS: No change in the mild mediastinal lymphadenopathy. Dominant paratracheal lymph node measure s 1.3 cm in short axis diameter. No hilar or axillary lymphadenopathy. Normal esophagus. No pleural o r pericardial effusions. The heart is normal in size. Normal caliber thoracic aorta with no evidence for dissection. The main pulmonary arteries are patent. Limited views of the upper abdomen demonstrat e a normal liver and spleen. Atrophic left kidney. The visualized adrenal glands are unremarkable. St able patchy sclerosis within the left side of the manubrium. This is likely benign given the long-ter m stability. Otherwise, no suspicious lytic are blastic osseous lesions. No pneumothorax. The central airways are patent. Small nodular and irregular density within the lung apices remain unchanged. The refore, this favors scarring. This includes a stable 5 mm nodular density within the right lung apex on image 37. A few scattered bibasilar linear densities and mild bibasilar bronchiectasis remains sta ble. This favors chronic scarring/fibrotic change. There is associated mild subpleural honeycombing a t the lung bases. Small focal groundglass density seen within the lingula on image 127. This is new f rom the prior study and favors mild inflammatory/infectious change. A 3 mm subpleural nodular density within the right upper lobe laterally on image 107 is new from the prior study. A few additional sca ttered subpleural nodular densities remain stable and are likely benign. IMPRESSION: 1. There is a new small focal groundglass density within the lingula which favors mild inflammatory/i nfectious change. 2. No change in the bibasilar mild fibrotic change. 3. Stable mild mediastinal lymphadenopathy. This may correspond to the patient's history of sarcoidos is. 4. A new 3 mm subpleural indeterminate nodule within the right upper lobe. 5. The additional scattered subpleural nodular densities remain stable and are likely benign. ACT 112: Negative or not required by law. Electronically signed by: Alon Infante M.D. 11/14/2019 9:39 AM
--- NOTE | 2019-11-14 10:36 | Communication Note ---
Date of Service: November 14, 2019 Sandy is 49 years old, is right-handed, has been followed by myself for about 6 years now and prior to that saw Dr. Arik Ortega and has seen quite a number of neurologists at tertiary care centers among them [facility] and [facility]. 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 She has had spinal fluid done in the remote past on 2 occasions neither which have shown any significant pleocytosis etc. but 1 of which did have associated oligoclonal proteins leading to a potential diagnosis of MS but these disappeared on the second tap No consistent diagnosis has been made other than a "granulomatous disorder" of unknown type and sarcoidosis has periodically been mentioned but never proven and no tissue has ever been obtained despite having lung biopsies done in the r emote past She has some hypertension, depression, and is on low doses of amlodipine and an antidepressant of the serotonin reuptake inhibitor group and has been on Imuran 50 mg twice a day for several years without any recurrent clinical symptoms related to her underlying 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 This is been maintained and she just got through with 4 to 5 days of IV Solu-Medrol without any tapering oral course following it. After 4 days she developed recurrent episodes of paresthesias involving the left side than the right side and has had some headaches and vague visual disturbances She does admit to a prior history of headaches but the severity of them were generally greater than this and the auras were generally visual and she does not recall having anything of this type She presented to the emergency room several days ago and the physicians carried out the orders I was going to try to get on an outpatient basis including echocardiogram and CT angiography of the head and neck and none of this was revealing no significant pathology but views of the lungs did show a groundglass opacity in the lingula and some areas in the apices led to the recommendation of a dedicated pulmonary CT at some point in the future She continued to have the events and presented to the emergency room again last night and on this occasion MR imaging of the brain cervical and thoracic spines were performed with and without contrast and showed evidence for diffuse enhancement of the meninges overlying the brain with some nodularity and the differential diagnosis included various forms of meningitis sarcoidosis etc. I was unable to really review these images on my home computer and having difficulty finding them today on the computer so I will defer to radiology. The brain parenchyma showed nothing particularly new and certainly no enhancement was described other than the meningeal and the cervical spine had some mid cervical degenerative changes and thoracic was negative Laboratory studies of revealed nothing of significance Exam today is really unremarkable she is awake alert oriented in 3 spheres with no cranial neuropathies clear speech normal subjective facial sensation normal gait station coordination no drift or pronation sign no abnormal involuntary movements no meningeal signs weakness and no subjective sensory loss The diagnosis remains elusive at this time. Clinically disease sounds very much like recurrent migraines with sensory aura and my plan was to probably start her on some Topamax or possibly low-dose Depakote or even a low-dose tricyclic antidepressant as she was already on a calcium channel christina which would have been my first choice for this type of presentation and Inderal would have been contraindicated due to her depression. Now unfortunately with the meningeal enhancement issue we really have to go ahead with a lumbar puncture and is to go to be done tomorrow under fluoroscopy I would suggest that the fluid be sent for cells, glucose, protein, cultures for tuberculosis and fungus, Vera ink preparation, cryptococcal antigen, angiotensin-converting enzyme levels (these are generally not very useful however when diagnosing sarcoidosis), cytology, Lyme titers, and the multiple sclerosis profile specifically searching for oligoclonal proteins, myelin basic protein elevation, and CSF immunofixation. I would add herpes virus titers although I find these to be unlikely. She will need a serum Lyme titer and the appropriate serum studies for the MS profile and I will invite Dr. Dennis her attending physician to enter the appropriate order set I am going to suggest we continue the IV Solu-Medrol for now but I think we can probably be considering tapering this off and using an oral course of steroids over the next 10 days or so. Depending on how things go and results of the spinal fluid I may empirically add some low-dose Topamax at bedtime and build it up to a dose of 50 mg and see her back in the office or by tele-medicine in the next few weeks. I will check back tomorrow by computer and if necessary may commence to pay her visit but if she is doing well and spinal fluid proves to be unremarkable at least in terms of cell count, protein elevation and the initial cryptococcal antigen and I think she probably could be sent home await the results of the other components of the study, do the steroid taper and add the Topamax and I will communicate with Dr. Dennis regarding this tomorrow Jayant Thomson MD The above note was transcribed using the [employer] dictation system and may have typographical errors
[2019-11-14 13:15] LABS: Lyme Ab IgG w/WB Rflx Negative (Negative); Lyme Ab IgM w/WB Rflx Negative (Negative)
--- NOTE | 2019-11-14 13:47 | Communication Note ---
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 Received 1 dose of IV Solu-Medrol and will continue as per neuro recommendation. CTA of the chest today rule out sarcoidosis and LP will be done tomorrow. She otherwise remains hemodynamically stable without any acute distress Her numbness remains unchanged We will continue to follow. Dr Lisa Dennis
[2019-11-14] MEDS: SODIUM CHLORIDE 0.9% 1000ML 1,000 ML IV SCH (15:32)
[2019-11-14] MEDS: AMLODIPINE BESYLATE 5 MG TAB PO SCH (21:18)
[2019-11-14] MEDS ORDERED: methylPREDNISolone 1,000 MG in DEXTROSE 5% 250 ML IV ONE (23:30)
[2019-11-15] MEDS: SODIUM CHLORIDE 0.9% 1000ML 1,000 ML IV SCH ×3 (00:07→19:08)
[2019-11-15] MEDS: TRINTELLIX~ORDER AWAITING ACTION SCH ×4 (00:26→23:21)
[2019-11-15 05:46] LABS: Hematocrit (blood only) 35.2 % (37-47); Hemoglobin 11.9 g/dL (12.0-16.0); Immature Granulocytes % (auto) 0.5 %; Lymphocytes # (auto) 0.71 K/uL (1.2-3.4); Lymphocytes % (auto) 3.6 %; Mean Corpuscular Hemoglobin 30.8 pg (25-34); Mean Corpuscular Hgb Conc 33.8 g/dL (32-36); Mean Corpuscular Volume 91.2 fL (80-100); Mean Platelet Volume 10.1 fL (7.4-10.4); Monocytes % (auto) 1.5 %; Neutrophils # (auto) 18.79 K/uL (1.4-6.5); Neutrophils % (auto) 94.4 %; Platelet Count 272 K/uL (130-400); RDW Standard Deviation 46.5 fL (36.4-46.3); Red Blood Count 3.86 M/uL (4.2-5.4)
[2019-11-15 06:22] LABS: BUN Creatinine Ratio 11.7 (10-20); Calcium 8.6 mg/dl (8.5-10.1); Creatinine Clr Calc Pharmacy 42.9 ml/min; Est GFR (African American) 45.4; Est GFR (Non-African American) 39.2; Magnesium 2.1 mg/dl (1.8-2.4); Potassium 3.8 mmol/L (3.5-5.1)
[2019-11-15] MEDS: MULTIVITAMIN TAB PO SCH (07:41)
[2019-11-15] MEDS: azaTHIOprine 50 MG TAB PO SCH ×2 (07:41→17:43)
[2019-11-15] MEDS: LOSARTAN POTASSIUM 25 MG TAB PO SCH (07:41)
[2019-11-15] MEDS: CHOLECALCIFEROL 1,000 UNITS 25 MCG TAB PO SCH (07:42)
[2019-11-15] MEDS: ASPIRIN 81 MG ECTAB PO SCH (08:58)
--- NOTE | 2019-11-15 11:07 | Hospitalist Progress Note ---
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 demyelination to rule out any infective/inflammatory process Presented with the fleeting neuro symptoms involving numbness initially left upper extremity and lateral arm right side extremities Has had tingling involving the extremities No visual changes and no focal motor deficit Started with intravenous Solu-Medrol 1 g/day #2 doses as of 11/15/2019 As of today neuro symptoms have resolved Appreciate neurology input and recommendation She will have LP today for further recommendation from neurologist She does not have any history of sarcoidosis CT of the chest did show minimal bilateral hilar adenopathy CRP is negative CHELSEA level is pending (2) Left sided numbness: (3) Right sided numbness: Resolved (4) Tingling in extremities: Resolved (5) Crohn's disease: No acute symptoms (6) CKD (chronic kidney disease): History of CKD Tripped contrast for CT of the chest Creatinine is minimally elevated Has been getting intravenous fluid and was advised to drink more fluid We will monitor PRP History of high blood pressure Controlled now History of TIA and has been on aspirin DVT prophylax SCDs Admission and Anticipated Discharge Date Admission Date: November 14, 2019 Subjective 11/15/2019 The patient was seen and examined in medical telemetry unit Her numbness involving both upper extremities have resolved She denies any other neurological symptoms She complains today of some pain in both ankles without any swelling Review of Systems Review of Systems: All systems reviewed and are unremarkable except as noted below Musculoskeletal: Bilateral ankle pain without swelling and/or redness Physical Exam Physical Exam: Lying in bed comfortably Constitutional: well developed and well nourished; no acute distress and not ill appearing Eyes: PERRL, conjunctivae normal, anicteric sclerae ENMT: external ear and nose normal, oropharynx normal Neck: trachea midline, no thyromegaly Respiratory: normal respiratory effort; no respiratory distress Auscultation: lungs clear to auscultation bilaterally Cardiovascular: Rate/Rhythm: regular rate and regular rhythm Heart Sounds: no murmur Gastrointestinal (Abdomen): Inspection/Auscultation: abdomen normal to inspection and normal bowel sounds Percussion/Palpation: abdomen soft; abdomen nontender Musculoskeletal: Bilateral ankle tenderness on palpation. Movement is minimally painful. No swelling noted Neurologic: moves all extremities; no focal motor deficits Lymphatic: no cervical or axillary lymphadenopathy Results & Data Results & Data ([facility]) Vital Signs (Past 12 Hours) Vital Signs Temp Pulse Pulse Pulse Resp BP BP 11/15/19 07:04 84 11/15/19 07:00 37.1 C 107 H 18 137/71 11/15/19 03:00 36.8 C 86 18 120/73 11/14/19 23:27 76 11/14/19 23:19 37.0 C 98 H 18 118/74 Pulse Ox 11/15/19 07:04 11/15/19 07:00 94 11/15/19 03:00 96 11/14/19 23:27 11/14/19 23:19 97 Laboratory Results Short CBC 11/15/19 Range/Units 05: WBC 19.90 H (4.8-10.8) K/uL Hgb 11.9 L (12.0-16.0) g/dL Hct 35.2 L (37-47) % Plt Count 272 (130-400) K/uL BMP 11/15/19 05:20 Sodium 142 Potassium 3.8 Chloride 110 H Carbon Dioxide 23 BUN 18 D Creatinine 1.56 H Glucose 138 H Calcium 8.6 Medications Administered Current Inpatient Medications Acetaminophen (Tylenol) 650 mg PO Q4H PRN PRN Reason: Pain or Fever Stop: 12/14/19 01:12 Last Admin: 11/14/19 22:39 Dose: 650 mg Documented by: Amlodipine Besylate (Norvasc) 5 mg PO [facility] Stop: 12/14/19 20:59 Last Admin: 11/14/19 21:18 Dose: 5 mg Documented by: Aspirin (Ecotrin Ectab) 81 mg PO QAM [facility] Stop: 12/14/19 08:59 Last Admin: 11/15/19 08:58 Dose: Not Given Documented by: Azathioprine (Imuran) 50 mg PO BIDM [facility] Stop: 12/14/19 07:59 Last Admin: 11/15/19 07:41 Dose: 50 mg Documented by: Fluticasone Propionate (Flonase) 2 sprays NA DAILY PRN PRN Reason: Allergy Symptoms Stop: 12/14/19 01:12 Sodium Chloride (Nss 1000ml) 1,000 mls @ 125 mls/hr IV .Q8H [facility] Stop: 12/14/19 15:59 Last Admin: 11/15/19 07:40 Dose: 125 mls/hr Documented by: Ioversol (Optiray 320 100ml) 94 ml IV ONCE PRN PRN Reason: Interaction Checking Stop: 11/18/19 09:15 Last Admin: 11/14/19 09:17 Dose: 94 ml Documented by: Lorazepam (Ativan) 0.5 mg PO Q2D PRN PRN Reason: Anxiety Stop: 12/14/19 01:12 Losartan Potassium (Cozaar) [facility] [place]: 12/14/19 08:59 Last Admin: 11/15/19 07:41 Dose: 12.5 mg Documented by: Miscellaneous (Order Awaiting Action) 1 ea N/A QS [facility] Stop: 12/14/19 07:59 Last Admin: 11/15/19 07:42 Dose: Not Given Documented by: Multivitamins (Multivitamin Tab) 1 tab PO DAILY [facility] Stop: 12/14/19 08:59 Last Admin: 11/15/19 07:41 Dose: 1 tab Documented by: Nitroglycerin (Nitrostat) 0.4 mg SL UD PRN PRN Reason: Chest Pain Stop: 12/14/19 01:12 Ondansetron HCl (Zofran) 4 mg IV Q6H PRN PRN Reason: Nausea Stop: 12/14/19 01:12 Vitamin D (Vitamin D3) 1,000 units PO [facility] Stop: 12/14/19 08:59 Last Admin: 11/15/19 07:42 Dose: 1,000 units Documented by:
--- NOTE | 2019-11-15 11:42 | Fluoroscopy Report ---
FL lumbar puncture diagnostic CLINICAL HISTORY: right sided numbness, demyelinating disease? COMPARISON STUDY: December 2014 FLUOROSCOPY TIME: 18 seconds. NUMBER OF FLUOROSCOPIC IMAGES: 1 FINDINGS: Timeout was performed. The risks the procedure were explained the patient and informed consent was obtained. The patient was prepped and draped in sterile fashion. The skin was anesthetized 1% lidocaine. A lumbar puncture was performed the L4-5 level with a 20-gauge spinal needle. The opening pressure was 26 cm H2O. 8 cc of clear CSF was withdrawn by gravity drip and into 4 tubes. The fluid was sent for la boratory analysis as specified by the referring clinician. There were no immediate complications. IMPRESSION: 1. Successful fluoroscopically guided diagnostic lumbar puncture performed at the L4-5 level 2. Opening pressure of 26 cm H2O ACT 112: Negative or not required by law. Electronically signed by: Amos Toney M.D. 11/15/2019 11:41 AM
[2019-11-15 12:00] LABS: Appearance CSF Clear; CSF Count Tube # 3; CSF Xanthrochromic No xanthochromia; Color CSF Colorless; Red Blood Cell CSF (A) 1 /uL (0-); White Blood Cell CSF (B) 6 /uL (0-5)
[2019-11-15 12:01] LABS: Red Blood Cell CSF (B) 1 /uL (0-); White Blood Cell CSF (A) 9 /uL (0-5)
[2019-11-15 12:11] LABS: Total Protein CSF 37.8 mg/dl (15-45)
[2019-11-15 13:21] LABS: Cryptococcus neoformans/ga PCR Not Detected (NotDetected); Cytomegalovirus PCR Not Detected (NotDetected); Enterovirus PCR Not Detected (NotDetected); Escherichia coli K1 PCR Not Detected (NotDetected); Haemophilius influenzae PCR Not Detected (NotDetected); Herpes Simplex Virus 1 PCR Not Detected (NotDetected); Herpes Simplex Virus 2 PCR Not Detected (NotDetected); Human Herpes Virus 6 PCR Not Detected (NotDetected); Human Parechovirus PCR Not Detected (NotDetected); Listeria monocytogenes PCR Not Detected (NotDetected); Neisseria meningitidis PCR Not Detected (NotDetected); Streptococcus agalactiae PCR Not Detected (NotDetected); Streptococcus pneumoniae PCR Not Detected (NotDetected); Varicella Zoster Virus PCR Not Detected (NotDetected)
--- NOTE | 2019-11-15 16:03 | Communication Note ---
Date of Service: November 15, 2019 Sandy looks well today she has had her lumbar puncture results preliminarily show 9 white cells but the differential was not out and a protein is normal the glucose is elevated and thus far initial gram stains etc. are pretty unremarkable Her exam remains normal with intact cranial nerves normal reflexes strength testing sensation and her complaints of paresthesias are now gone and are no meningeal signs She continues to be an enigmatic case of a presumptive granulomatous process of indeterminant cause possibly sarcoidosis with low-grade intraparenchymal involvement demonstrating no contrast enhancement and apparently now low-grade enhancement of the meninges with some nodularity of unknown duration She has been on Imuran per [facility] for 2 years now and has been on pulse doses of steroids recently primarily because of her brief duration migraine-like events with variable sensory phenomenon followed by variable severity headaches and responsive to protracted courses of steroids and recurrent when they are not on board Right now she is on day #3 of IV Solu-Medrol, has just had a lumbar puncture, should be held overnight, discharged in the morning on oral prednisone 80 mg a day for 4 days then 60 mg a day for 4 days 40 mg/day for 4 days, 20 mg/day for 4 days, 10 mg/day for 4 days and then stop. I would add Depakote 250 ER in the morning and keep it at this level until I next have a chance to assess her either by tele-video or telephone in a week The ultimate diagnosis remains unestablished and I am not certain at the recent bouts of short duration fluctuating paresthesias and headache are not simply migraine but with her background granulomatous disease and meningeal enhancement this would really have to be a diagnosis of exclusion I have been discussing her case with Dr. Sonny Thomson MD
[2019-11-15] MEDS: AMLODIPINE BESYLATE 5 MG TAB PO SCH (20:30)
[2019-11-15] MEDS ORDERED: methylPREDNISolone 1,000 MG in DEXTROSE 5% 250 ML IV ONE (23:30)
[2019-11-16] MEDS ORDERED: Nursing to Pharmacy Communication ONE (00:46)
[2019-11-16] MEDS: SODIUM CHLORIDE 0.9% 1000ML 1,000 ML IV SCH ×2 (02:27→13:13)
[2019-11-16] MEDS: CHOLECALCIFEROL 1,000 UNITS 25 MCG TAB PO SCH (08:30)
[2019-11-16] MEDS: LOSARTAN POTASSIUM 25 MG TAB PO SCH (08:31)
[2019-11-16] MEDS: MULTIVITAMIN TAB PO SCH (08:31)
[2019-11-16] MEDS: ASPIRIN 81 MG ECTAB PO SCH (08:32)
[2019-11-16] MEDS: azaTHIOprine 50 MG TAB PO SCH (08:32)
[2019-11-16] MEDS: TRINTELLIX~ORDER AWAITING ACTION SCH (08:32)
--- NOTE | 2019-11-16 10:04 | Hospitalist Progress Note ---
Date of Service November 16, 2019 Assessment & Plan (1) ALUMINUM WELDER demyelination: MR findings of ALUMINUM WELDER demyelination to rule out any infective/inflammatory process Presented with the fleeting neuro symptoms involving numbness initially left upper extremity and lateral arm right side extremities Has had tingling involving the extremities No visual changes and no focal motor deficit Started with intravenous Solu-Medrol 1 g/day #2 doses as of 11/15/2019 As of today neuro symptoms have resolved Appreciate neurology input and recommendation She will have LP today for further recommendation from neurologist Spinal fluid studies remain unremarkable so far Pending results are Lyme PCR and a few other culture Serum CHELSEA level and immunofixation have been pending Clinically no neurological symptoms and the patient will be discharged this afternoon She will have tapering dose of prednisone as advised by the new neurologist She does not have any history of sarcoidosis CT of the chest did show minimal bilateral hilar adenopathy CRP is negative CHELSEA level is pending (2) Left sided numbness: Resolved (3) Right sided numbness: Resolved (4) Tingling in extremities: Resolved (5) Crohn's disease: No acute symptoms (6) CKD (chronic kidney disease): History of CKD Tripped contrast for CT of the chest Creatinine is minimally elevated Has been getting intravenous fluid and was advised to drink more fluid Creatinine went up little bit yesterday we will check it again before she is discharged Was advised to drink plenty of fluid at home History of high blood pressure Controlled now History of TIA and has been on aspirin DVT prophylax SCDs Admission and Anticipated Discharge Date Admission Date: November 14, 2019 Subjective 11/15/2019 The patient was seen and examined in medical telemetry unit Her numbness involving both upper extremities have resolved She denies any other neurological symptoms She complains today of some pain in both ankles without any swelling 11/16/2019 Patient was seen and examined in medical telemetry unit She has been feeling a lot better and denies any neuro symptoms and her pain in the ankles have resolved She is ready to be discharged Review of Systems Review of Systems: All systems reviewed and are unremarkable except as noted below Musculoskeletal: Bilateral ankle pain without swelling and/or redness-resolved Physical Exam Physical Exam: Lying in bed comfortably Constitutional: well developed and well nourished; no acute distress and not ill appearing Eyes: PERRL, conjunctivae normal, anicteric sclerae ENMT: external ear and nose normal, oropharynx normal Neck: trachea midline, no thyromegaly Respiratory: normal respiratory effort; no respiratory distress Auscultation: lungs clear to auscultation bilaterally Cardiovascular: Rate/Rhythm: regular rate and regular rhythm Heart Sounds: no murmur Gastrointestinal (Abdomen): Inspection/Auscultation: abdomen normal to inspection and normal bowel sounds Percussion/Palpation: abdomen soft; abdomen nontender Musculoskeletal: No more ankle pain on examination Neurologic: moves all extremities; no focal motor deficits Stated numbness involving the extremities have resolved Lymphatic: no cervical or axillary lymphadenopathy Results & Data Results & Data ([facility]) Vital Signs (Past 12 Hours) Vital Signs Temp Pulse Pulse Pulse Resp BP BP 11/16/19 07:15 36.8 C 88 20 123/79 11/16/19 07:07 69 11/16/19 02:55 36.9 C 80 17 114/71 11/15/19 23:42 36.9 C 73 18 112/70 11/15/19 23:33 78 Pulse Ox 11/16/19 07:15 94 11/16/19 07:07 11/16/19 02:55 95 11/15/19 23:42 96 11/15/19 23:33 Medications Administered Current Inpatient Medications Acetaminophen (Tylenol) 650 mg PO Q4H PRN PRN Reason: Pain or Fever Stop: 12/14/19 01:12 Last Admin: 11/14/19 22:39 Dose: 650 mg Documented by: Amlodipine Besylate (Norvasc) 5 mg PO HS [facility] Stop: 12/14/19 20:59 Last Admin: 11/15/19 20:30 Dose: 5 mg Documented by: Aspirin (Ecotrin Ectab) 81 mg PO QAM [facility] Stop: 12/14/19 08:59 Last Admin: 11/16/19 08:32 Dose: 81 mg Documented by: Azathioprine (Imuran) 50 mg PO BIDM [facility] Stop: 12/14/19 07:59 Last Admin: 11/16/19 08:32 Dose: 50 mg Documented by: Fluticasone Propionate (Flonase) 2 sprays NA DAILY PRN PRN Reason: Allergy Symptoms Stop: 12/14/19 01:12 Sodium Chloride (Nss 1000ml) 1,000 mls @ 125 mls/hr IV .Q8H [facility] Stop: 12/14/19 15:59 Last Admin: 11/16/19 02:27 Dose: 125 mls/hr Documented by: Ioversol (Optiray 320 100ml) 94 ml IV ONCE PRN PRN Reason: Interaction Checking Stop: 11/18/19 09:15 Last Admin: 11/14/19 09:17 Dose: 94 ml Documented by: Lorazepam (Ativan) 0.5 mg PO Q2D PRN PRN Reason: Anxiety Stop: 12/14/19 01:12 Last Admin: 11/15/19 22:02 Dose: 0.5 mg Documented by: Losartan Potassium (Cozaar) [facility] [place] [place] Stop: 12/14/19 08:59 Last Admin: 11/16/19 08:31 Dose: 12.5 mg Documented by: Miscellaneous (Order Awaiting Action) 1 ea N/A QS [facility] Stop: 12/14/19 07:59 Last Admin: 11/16/19 08:32 Dose: Not Given Documented by: Multivitamins (Multivitamin Tab) 1 tab PO DAILY [facility] Stop: 12/14/19 08:59 Last Admin: 11/16/19 08:31 Dose: 1 tab Documented by: Nitroglycerin (Nitrostat) 0.4 mg SL UD PRN PRN Reason: Chest Pain Stop: 12/14/19 01:12 Ondansetron HCl (Zofran) 4 mg IV Q6H PRN PRN Reason: Nausea Stop: 12/14/19 01:12 Last Admin: 11/15/19 22:02 Dose: 4 mg Documented by: Vitamin D (Vitamin D3) 1,000 units PO [facility] Stop: 12/14/19 08:59 Last Admin: 11/16/19 08:30 Dose: 1,000 units Documented by:
[2019-11-16 10:48] LABS: BUN Creatinine Ratio 13.6 (10-20); Calcium 7.6 mg/dl (8.5-10.1); Creatinine Clr Calc Pharmacy 46.9 ml/min; Est GFR (African American) 50.8; Est GFR (Non-African American) 43.9; Potassium 3.3 mmol/L (3.5-5.1)
[2019-11-16] MEDS ORDERED: predniSONE 20 MG TAB PO ONE (13:45)
[2019-11-16] MEDS ORDERED: DIVALPROEX DELAY RELEASE 250 MG TABEC PO ONE (13:45)
--- NOTE | 2019-11-16 19:30 | Discharge Summary ---
Date of Service November 16, 2019 Admission HPI Per Admitting Provider DICTATED BY: Julian Forman MD DATE OF ADMISSION: 11/14/2019 CHIEF COMPLAINT: Right-sided numbness. HISTORY OF PRESENT ILLNESS: This is a 49-year-old female with past medical history significant for nonallergic rhinitis, recurrent sinus infections, prolonged QT interval, hypertension, regional enteritis, chronic kidney disease stage III, NEUROPSYCHIATRIST demyelinating disease, migraine without aura , ACEI intolerance, history of TIA, who lives with her , presents with right-sided numbness. The patient says since she had a left sinus surgery few years ago, she was having this kind of feeling on and off and she was on Imuran for that, but when it flares only steroids worked for her. 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 One time she felt some numbness in the whole of her face, in the mouth and also going to right and left side. Again in the evening, the numbness in the right side, tongue and in her throat which prompted her to come to the ER again. This time brain, thoracic and cervical spine MRI was done which was showing diffuse slightly nodular leptomeningeal enhancement, also increased T2 signal within the posterior quique, with slight increase in post contrast enhancement. ER contacted the Neurology and recommended to give 1 gram of Solu-Medrol, which the patient is getting now. Currently numbness is improved, resting comfortably and hemodynamically stable. Has some headache, denies dizziness, no blurred vision, no earache, no runny nose, no sore throat. When she is having episodes, she has some difficulty speaking and difficulty swallowing. currently no short of breath, no chest pain, no cough, no fever, no chills, no nausea, no abdominal pain. Normal bowel and bladder movements. No hematuria, hematochezia or black stools. No swelling in the legs, no rash. Ambulates okay. Admission Exam Per Admitting Provider GENERAL: The patient is of moderate build, not in acute distress. VITAL SIGNS: Temperature 37, pulse 104, respiratory rate 18, blood pressure 111/61, oxygen 93% on room air. HEENT: No pallor, no icterus. Pupils equal, round, reactive to light. NECK: Supple. CARDIOVASCULAR: S1, S2 heard, regular rate and rhythm, no murmur, no gallop. RESPIRATORY SYSTEM: Normal AP diameter. No accessory muscle use. No wheezing, no crackles. ABDOMEN: Soft, bowel sounds present, nontender, nondistended. CENTRAL NERVOUS SYSTEM: Alert and oriented. Power 5/5 in all extremities. No pronator drift. Coordination of movements normal. Sensation is intact. Position sense intact. EXTREMITIES: No edema, no erythema. Principal Diagnosis NEUROPSYCHIATRIST demyelination, left and right sided numbness and tingling completely resolved, unremarkable LP, Crohn's disease, CKD Discharge Exam Constitutional well developed and well nourished; no acute distress and not ill appearing Eyes PERRL, conjunctivae normal, anicteric sclerae ENMT external ear and nose normal, oropharynx normal Neck trachea midline, no thyromegaly Respiratory normal respiratory effort; no respiratory distress Auscultation: lungs clear to auscultation bilaterally Cardiovascular Rate/Rhythm: regular rate and regular rhythm Heart Sounds: no murmur Gastrointestinal (Abdomen) Inspection/Auscultation: abdomen normal to inspection and normal bowel sounds Percussion/Palpation: abdomen soft; abdomen nontender Neurologic moves all extremities; no focal motor deficits Lymphatic no cervical or axillary lymphadenopathy Discharge Data Allergies Allergy/AdvReac Type Severity Reaction Status Date / Time Sulfa (Sulfonamide Allergy Intermediate FACIAL Verified 11/13/19 22:47 Antibiotics) SWELLING nitrofurantoin Allergy Unknown RASH Verified 11/13/19 22:47 lisinopril AdvReac Unknown COUGH Verified 11/13/19 22:47 sertraline AdvReac Unknown Hypertensio Verified 11/13/19 22:47 n Consultations 11/13/19 23:02 ED Decision to Admit Stat 11/14/19 01:13 Consult Case Management - Discharge Planning Routine 11/14/19 08:00 Consult Neurology Routine Ordered Studies 11/13/19 17:30 MR brain MS wo/w con Stat MR cervical spine wo/w con Stat MR thoracic spine wo/w con Stat 11/14/19 08:00 CT chest wo/w con Routine 11/15/19 08:11 [place] lumbar puncture diagnostic Routine Hospital Course (1) NEUROPSYCHIATRIST demyelination: MR findings of NEUROPSYCHIATRIST demyelination to rule out any infective/inflammatory process Presented with the fleeting neuro symptoms involving numbness initially left upper extremity and lateral arm right side extremities Has had tingling involving the extremities No visual changes and no focal motor deficit Started with intravenous Solu-Medrol 1 g/day #2 doses as of 11/15/2019 As of today neuro symptoms have resolved Appreciate neurology input and recommendation She will have LP today for further recommendation from neurologist Spinal fluid studies remain unremarkable so far Pending results are Lyme PCR and a few other culture Serum CHELSEA level and immunofixation have been pending Clinically no neurological symptoms and the patient will be discharged this afternoon She will have tapering dose of prednisone as advised by the new neurologist She does not have any history of sarcoidosis CT of the chest did show minimal bilateral hilar adenopathy CRP is negative CHELSEA level is pending (2) Left sided numbness: Resolved (3) Right sided numbness: Resolved (4) Tingling in extremities: Resolved (5) Crohn's disease: No acute symptoms (6) CKD (chronic kidney disease): History of CKD Tripped contrast for CT of the chest Creatinine is minimally elevated Has been getting intravenous fluid and was advised to drink more fluid Creatinine went up little bit yesterday we will check it again before she is discharged Was advised to drink plenty of fluid at home History of high blood pressure Controlled now History of TIA and has been on aspirin DVT prophylax SCDs Total Time Total Time Spent Total Time Spent (In Minutes): 35 minutes Total Time Includes: Examination of the Patient, Discharge Planning, Medication Reconciliation and Communication With Other Providers Discharge Plan Discharge Items Patient Disposition: Home - Self-Care Reason For Visit: RIGHT-SIDED NUMBNESS Discharge Diagnosis: NEUROPSYCHIATRIST demyelination, left and right sided numbness and tingling completely resolved, unremarkable LP, Crohn's disease, CKD Condition on Discharge: Fair Activity: Resume your previous activity Non-emergency contact: Primary Care Provider Call non-emergency contact if: you have any medication questions Follow-up/Referrals: Jayant Thomson MD [Physician] - (Dr. Thomson's office has been notified for possible video interaction with him in 1 week) Nolan Brooks MD [Primary Care Provider] - 11/22/19 9:20 am (Your appointment is with [facility] Isaacs at [facility] Diet: Heart Healthy Addtl Attending Provider Instructions: Please take precaution to avoid fall Follow prednisone tapering dose as advised Pending Studies at Discharge: Yes Studies:: Remaining lumbar puncture studies Stand-Alone Forms: My [facility], Smoking Cessation Medications and DC Order Prescriptions: New prednisone 20 mg tablet 20 mg PO UD Qty: 38 RF: 0 divalproex [Depakote] 250 mg tablet,delayed release (DR/EC) 250 mg PO DAILY Qty: 30 RF: 0 Continued aspirin [Aspir-81] 81 mg Tablet,Delayed Release (Dr/Ec) 81 mg PO QAM RF: 0 fluticasone propionate [Flonase Allergy Relief] 50 mcg/actuation [place],Suspension 2 spray INTRANASAL DAILY PRN (Reason: Allergy Symptoms) RF: 0 multivitamin Tablet 1 tab PO DAILY RF: 0 azathioprine 50 mg tablet 50 mg PO BIDM RF: 0 acetaminophen [Tylenol Extra Strength] 500 mg Tablet 500 - 1,000 mg PO Q6H PRN (Reason: Fever Or Pain) RF: 0 lorazepam 0.5 mg tablet 0.5 mg PO Q2D PRN (Reason: Anxiety) RF: 0 amlodipine 10 mg tablet 5 mg PO HS RF: 0 losartan 25 mg tablet 12.5 mg PO QAM RF: 0 Trintellix 5 mg tablet 5 mg PO DAILY RF: 0 cholecalciferol (vitamin D3) [Vitamin D3] 25 mcg (1,000 unit) Capsule 1,000 unit PO QAM RF: 0 Discharge Orders: Discharge Order (Routine); Ordered 11/16/19 Ordered By: Bebeto Dennis Admission Data Admit Date/Time: 11/14/19 00:28 Attending Provider: Bebeto Dennis Admit Provider: Julian Forman Primary Care Provider: Nolan Brooks Other Providers: Julian Forman ; Jayant Thomson Other Interventions: Discharge Summary Assessment (RN) Last Done: 11/16/19 13:08 DC Date/Time DO NOT enter until pt leaves facility: 11/16/19 14:42
[2019-11-24 17:25] LABS: Albumin 3.7 g/dL (3.5-5.2); Albumin, CSF 17.8 mg/dL (8.0-42.0); CSF, LDH 12 U/L (<=25); IgG CSF 3.9 mg/dL (0.8-7.7); IgG Index, CSF 0.76 (<0.66); IgG Serum 1070 mg/dL (600-1640); Lyme DNA PCR CSF or Synovial Not detected (Not Detected); Lyme DNA Source CSF; Lyme IgG Band Pattern CSF DNR; Lyme IgG CSF NO BANDS DETECTED; Lyme IgM Band Pattern CSF DNR; Lyme IgM CSF NO BANDS DETECTED; Myelin Basic Protein <2.0 mcg/L (2.0-4.0); Synthesis Rate, IgG CSF 3.9 mg/24 h (-9.9-3.3); VDRL Qualitative CSF Nonreactive (Nonreactive)
== END 2019-11-16 14:42 | disposition home or self-care (01) | DRG 59 ==
LOC: ED 17:05 → 2N 11-14 00:28

== ENCOUNTER 2020-03-31 18:21 | Observation (INO) ==
[2020-03-31] MEDS ORDERED: PROCHLORPERAZINE 2 ML IV ONE (19:02)
[2020-03-31] MEDS ORDERED: SODIUM CHLORIDE 0.9% 1000ML 1,000 ML IV ONE (19:02)
[2020-03-31] MEDS ORDERED: DiphenhydrAMINE HCL 50 MG/ML VIAL IV STA (19:02)
--- NOTE | 2020-03-31 19:02 | Emergency Department Note ---
History of Present Illness General Chief complaint: Neuro Symptoms/Deficit Stated complaint: NUMBNESS ON LEFT SIDE Time Seen by Provider: 03/31/20 18:35 Source: patient Limitations: no limitations History of Present Illness Provider complaint: Left-sided tingling Onset (ago): day(s) Location: face, upper extremity, lower extremity and left Severity: moderate Pain Consistency: + constant Maximum Pain Intensity: 6 Quality: + other (Tingling sensation) Relieved By: + none Associated symptoms: + headaches and + weakness (Both legs); no chest pain, no fever/chills, no nausea/vomiting and no shortness of breath This is a 49-year-old female with a history of spinal stenosis in the cervical spine presenting with tingling to the left side of her body for the past 2 days. She describes it as constant and a tingling sensation without loss of sensation. It involves her face, neck, left arm and leg. She states she had similar symptoms in November and was admitted to the hospital at that time. 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 She also complains of a frontal headache. She also has had weakness in both of her legs for the past week. She denies any back pain, although she does have some neck pain. She has had no saddle anesthesia or fecal or urinary incontinence. She does state that she has some difficulty walking due to weakness. She denies any injury or fall. She has had no trouble swallowing, problems with her vision or her speech. She denies chest pain, shortness of breath, cough or cold symptoms, fever, abdominal pain or vomiting. Home Medications Home Medications Medication Instructions Recorded Confirmed Type Trintellix 5 mg PO HS 10/12/19 03/31/20 History acetaminophen [Tylenol Extra 500 - 1,000 mg PO Q6H PRN 10/12/19 03/31/20 History Strength] amlodipine 5 mg PO HS 10/12/19 03/31/20 History cholecalciferol (vitamin D3) 1,000 unit PO HS 10/12/19 03/31/20 History [Vitamin D3] lorazepam 0.5 mg PO Q2D PRN 10/12/19 03/31/20 History losartan 12.5 mg PO QAM 10/12/19 03/31/20 History multivitamin 1 tab PO HS 03/31/20 09/18/20 History aspirin [Aspir-81] 81 mg PO QAM 11/12/19 03/31/20 History baclofen 10 mg PO TID PRN 03/31/20 03/31/20 History prednisone 20 mg PO Q2D 03/31/20 03/31/20 History Allergies Allergy/AdvReac Type Severity Reaction Status Date / Time Sulfa (Sulfonamide Allergy Intermediate FACIAL Verified 03/31/20 21:17 Antibiotics) SWELLING nitrofurantoin Allergy Unknown RASH Verified 03/31/20 21:17 lisinopril AdvReac Unknown COUGH Verified 03/31/20 21:17 sertraline AdvReac Unknown Hypertensio Verified 03/31/20 21:17 n Past Med/Surg History Medical History Abnormal brain MRI HYDROSTATIC TUBING TESTER demyelination Crohn's disease CVA (cerebral vascular accident) Fibroid uterus Heavy menstrual bleeding Left upper extremity numbness Postural dizziness with near syncope Tingling in extremities Visual disturbance Surgical History S/P laparoscopic hysterectomy Social History Smoking Status: Never smoker Hx Alcohol Use: Yes Hx Substance Use: No Preferred Language: Ivorian Communication Ability: Effective Beliefs That Will Affect Care: None marital status: Current Living Situation: Spouse Current Living Situation Comment: Home with Feels Safe at Home: Yes Review of Systems See HPI for pertinent positives & negatives. and A total of 10 systems reviewed and were otherwise negative Physical Exam Vital Signs Vital Signs - 24 hr 03/31/20 18:24 03/31/20 20:08 03/31/20 20:15 Temperature 36.4 C L Temperature Source Oral Pulse Rate 96 H 79 78 Pulse Rate from SpO2 Sensor 77 Respiratory Rate 18 18 21 Respiratory Effort / Characteristics Non-Labored Spontaneous Respiratory Depth Normal Blood Pressure 171/112 H 157/105 H 156/98 H Blood Pressure Mean 131 123 107 Blood Pressure Position Sitting Pulse Oximetry 96 98 Oxygen Delivery Method Room Air Sepsis Recent Fever Within 48 Hours No Sepsis New/Unexplained Change in Mental Status No Sepsis Action Taken by Nursing No Action Required 03/31/20 21:00 03/31/20 21:32 Temperature Temperature Source Pulse Rate 85 98 H Pulse Rate from SpO2 Sensor 85 98 H Respiratory Rate 17 22 Respiratory Effort / Characteristics Respiratory Depth Blood Pressure 151/119 H Blood Pressure Mean 129 Blood Pressure Position Pulse Oximetry 99 98 Oxygen Delivery Method Sepsis Recent Fever Within 48 Hours Sepsis New/Unexplained Change in Mental Status Sepsis Action Taken by Nursing Constitutional: Vital signs reviewed. Eyes: Pupils are equal round reactive to light. Conjunctiva are noninjected. ENT: Pharynx is clear without erythema or exudate. Mucous membranes are moist. Neck supple without meningeal signs. Respiratory: Clear to auscultation bilaterally. Breath sounds are equal bilaterally. Cardiovascular: Regular rate and rhythm. No rubs or gallops. GI: Soft, nondistended and nontender. Bowel sounds are present. Musculoskeletal: No peripheral edema. No lower extremity tenderness. Integumentary: No cyanosis. or jaundice. Neurologic: The patient is awake and alert. Cranial nerves II-XII are intact. Motor is 5 out of 5 all extremities. Sensation is intact to light touch all extremities. Normal speech. No pronator drift. No limb ataxia. DTRs are 2+ in the lower extremities. Wide-based gait. Psychiatric: Normal affect. Not anxious appearing. Course Administered Medications Discontinued Medications Diphenhydramine HCl (Diphenhydramine Hcl 50 Mg/Ml Vial) 25 mg IV NOW STA Stop: 03/31/20 19:03 Last Admin: 03/31/20 19:49 Dose: 25 mg Documented by: [id number] Prochlorperazine (Compazine) 2 mls @ 1 mls/min IV ONE ONE Stop: 03/31/20 19:03 Last Admin: 03/31/20 19:49 Dose: 1 mls/min Documented by: [id number] Sodium Chloride (Nss 1000ml) 1,000 mls @ 999 mls/hr IV .Q1H1M ONE Stop: 03/31/20 20:02 Last Infusion: 03/31/20 20:51 Dose: 0 mls/hr Documented by: [id number] Admin: 03/31/20 19:49 Dose: 999 mls/hr Documented by: [id number] Methylprednisolone 1,000 mg/ (Dextrose) 266 mls @ 266 mls/hr IV NOW STA Stop: 03/31/20 22:00 Last Admin: 03/31/20 21:34 Dose: 266 mls/hr Documented by: [id number] Medical Decision Making Differential Diagnosis CVA, TIA, intracranial mass, demyelinating disease, sarcoid, metabolic derangement Medical Records Attestation: I reviewed the patient's medical records. The patient was admitted in November for intermittent paresthesias to the left and then the right side. She was treated with Solu-Medrol after having an MRI which showed the followin. Old bilateral cerebellar infarcts 2. No evidence of acute or subacute infarction 3. Interval resolution of previous identified frontal subcortical white matter lesions, with interval development of a new 5 mm focus of subcortical right frontal lobe increased T2 and FLAIR signal 4. Interval development of diffuse slightly nodular leptomeningeal enhancement. Diagnostic considerations should include neurosarcoid, metastatic disease, and meningitis. It should be noted that the time course and variability of the HYDROSTATIC TUBING TESTER lesions is not typical of metastatic disease or meningitis. Clinical correlation follow-up is advocated. The patient also had a lumbar puncture and the etiology of her symptoms was not fully determined on her discharge. Home Medications Current Medication List: was personally reviewed by me Laboratory Data Attestation: I reviewed the patient's lab results. Result diagrams: 03/31/20 19:15 03/31/20 20:13 Lab Results 03/31/20 03/31/20 03/31/20 Range/Units 19:15 19:15 19:15 WBC 13.08 H (4.8-10.8) K/uL RBC 4.42 (4.2-5.4) M/uL Hgb 14.2 (12.0-16.0) g/dL Hct 40.8 (37-47) % MCV 92.3 (80-100) fL MCH 32.1 (25-34) pg MCHC 34.8 (32-36) g/dL RDW Std Deviation 44.1 (36.4-46.3) fL RDW Coeff of Ivonne 13.0 (11.5-14.5) % Plt Count 297 (130-400) K/uL MPV 10.2 (7.4-10.4) fL Immature Gran % (Auto) 0.4 % Neut % (Auto) 76.7 % Lymph % (Auto) 14.0 % [place] % (Auto) 6.7 % Eos % (Auto) 1.7 % Baso % (Auto) 0.5 % Neut # (Auto) 10.04 H (1.4-6.5) K/uL Lymph # (Auto) 1.83 (1.2-3.4) K/uL [place] # (Auto) 0.88 H (0.11-0.59) K/uL Eos # (Auto) 0.22 (0-0.5) K/uL Baso # (Auto) 0.06 (0-0.2) K/uL Immature Gran # (Auto) 0.05 H (0.00-0.02) K/uL PT Cancelled INR Cancelled APTT Cancelled PTT Ratio Cancelled Sodium 140 (136-145) mmol/L Potassium (3.5-5.1) mmol/L Chloride 103 (98-107) mmol/L Carbon Dioxide 29 (21-32) mmol/L Anion Gap 8.0 (3-11) BUN 12 (7-18) mg/dl Creatinine 1.43 H (0.6-1.2) mg/dl Est Cr Clr Drug Dosing 47.9 ml/min Est GFR ( Amer) 50.4 Est GFR (Non-Af Amer) 43.5 BUN/Creatinine Ratio 8.5 L (10-20) Glucose 83 (70-99) mg/dl Calcium 9.2 (8.5-10.1) mg/dl Magnesium (1.8-2.4) mg/dl Total Bilirubin 0.2 (0.2-1) mg/dl AST (15-37) U/L ALT 17 (12-78) U/L Alkaline Phosphatase 56 (45-117) U/L Total Protein 7.6 (6.4-8.2) gm/dl Albumin 3.8 (3.4-5.0) gm/dl Globulin 3.8 (2.5-4.0) gm/dl Albumin/Globulin Ratio 1.0 (0.9-2) 03/31/20 03/31/20 Range/Units 20:13 20:13 WBC (4.8-10.8) K/uL RBC (4.2-5.4) M/uL Hgb (12.0-16.0) g/dL Hct (37-47) % MCV (80-100) fL MCH (25-34) pg MCHC (32-36) g/dL RDW Std Deviation (36.4-46.3) fL RDW Coeff of Ivonne (11.5-14.5) % Plt Count (130-400) K/uL MPV (7.4-10.4) fL Immature Gran % (Auto) % Neut % (Auto) % Lymph % (Auto) % [place] % (Auto) % Eos % (Auto) % Baso % (Auto) % Neut # (Auto) (1.4-6.5) K/uL Lymph # (Auto) (1.2-3.4) K/uL [place] # (Auto) (0.11-0.59) K/uL Eos # (Auto) (0-0.5) K/uL Baso # (Auto) (0-0.2) K/uL Immature Gran # (Auto) (0.00-0.02) K/uL PT 10.1 INR 1.0 APTT PTT Ratio Sodium (136-145) mmol/L Potassium 3.0 L (3.5-5.1) mmol/L Chloride (98-107) mmol/L Carbon Dioxide (21-32) mmol/L Anion Gap (3-11) BUN (7-18) mg/dl Creatinine (0.6-1.2) mg/dl Est Cr Clr Drug Dosing ml/min Est GFR ( Amer) Est GFR (Non-Af Amer) BUN/Creatinine Ratio (10-20) Glucose (70-99) mg/dl Calcium (8.5-10.1) mg/dl Magnesium 2.2 (1.8-2.4) mg/dl Total Bilirubin (0.2-1) mg/dl AST 12 L (15-37) U/L ALT (12-78) U/L Alkaline Phosphatase (45-117) U/L Total Protein (6.4-8.2) gm/dl Albumin (3.4-5.0) gm/dl Globulin (2.5-4.0) gm/dl Albumin/Globulin Ratio (0.9-2) Imaging Data Radiologist's Impression: HEAD CT NONCONTRAST CT DOSE: 537.48 mGy.cm HISTORY: left sided numbness eval for cva TECHNIQUE: Multiaxial CT images of the head were performed without the use of intravenous contrast. Automated exposure control was utilized for this study. A dose lowering technique was utilized adhering to the principles of ALARA. Comparison: None. Findings: The paranasal sinuses and mastoid air cells are clear. The calvarium and skull base are intact. Old small infarcts within the cerebellar hemispheres are again noted. There is symmetric hypodensity within the white matter of the bilateral frontal lobes at the high convexity. This is new compared the prior studies. No mass, hematoma, midline shift. No acute infarct. Impression: Symmetric hypodensity within the white matter of the bilateral frontal lobes at the high convexity. These are new compared the prior studies and could represent areas of demyelination given the patient's history of multiple sclerosis. Brain MRI can be used for further evaluation. ACT 112: Negative or not required by law. Electronically signed by: Alon Infante M.D. 03/31/2020 8:26 PM ECG Data Attestation: I personally reviewed and interpreted this ECG as follows: Indication: + other (Stroke symptoms) Rate (beats per minute): 87 Rhythm: + normal sinus ECG [place]: + Normal ECG ST segments: no ST elevation ECG Findings: no PVCs Blood Pressure Blood Pressure Findings: Elevated blood pressure Blood Pressure Disposition: Referred to patients primary care provider MDM Narrative I did evaluate the patient as noted above. IV access was established. I did place an order for continuous cardiac monitoring. The monitor showed normal sinus rhythm at a rate of 88 bpm. I did order and personally review the patient's 12-lead EKG as described above. She has some mild sinus arrhythmia otherwise no acute ischemia. I did order and review the patient's blood work as noted in the electronic medical record. Her white blood cell count is elevated but she is on prednisone daily. She has no infectious symptoms. Electrolytes are remarkable for a potassium of 3.0. I did order a CT of the head. I did review the images myself as well as the radiology report as described above. She does have symmetric hypodensities within the white matter of the bilateral frontal lobes at the high convexity. This is new from her prior imaging studies. I did discuss the case with Dr. Albright of neurology. She recommended a gram of Solu-Medrol IV and MRI with and without contrast of the brain. I did discuss this with the patient. She was agreeable to hospitalization. I did treat her with Solu-Medrol 1 g IV. I did discuss the case with the hospitalist and protective services case worker. Impression & Plan Left sided numbness, Bilateral leg weakness, Abnormal CT of the head, Acute hypokalemia Discharge Plan Visit Data Chief Complaint: Neuro Symptoms/Deficit Stated Complaint: NUMBNESS ON LEFT SIDE ED Provider: Bryce Abbasi Discharge Problem: Left sided numbness, Bilateral leg weakness, Abnormal CT of the head, Acute hypokalemia Patient Disposition: Being Evaluated by Hospitalist Discharge Instructions Interventions: ED Discharge Assessment Last Done: 03/31/20 22:18 Forms Stand Alone Forms: [facility] Prescriptions Prescriptions: No Action aspirin [Aspir-81] 81 mg Tablet,Delayed Release (Dr/Ec) 81 mg PO QAM RF: 0 baclofen 10 mg tablet 10 mg PO TID PRN (Reason: Back Pain) RF: 0 prednisone 20 mg tablet 20 mg PO Q2D RF: 0 multivitamin Tablet 1 tab PO HS RF: 0 acetaminophen [Tylenol Extra Strength] 500 mg Tablet 500 - 1,000 mg PO Q6H PRN (Reason: Fever Or Pain) RF: 0 lorazepam 0.5 mg tablet 0.5 mg PO Q2D PRN (Reason: Anxiety) RF: 0 amlodipine 10 mg tablet 5 mg PO HS RF: 0 losartan 25 mg tablet 12.5 mg PO QAM RF: 0 Trintellix 5 mg tablet 5 mg PO HS RF: 0 cholecalciferol (vitamin D3) [Vitamin D3] 25 mcg (1,000 unit) Capsule 1,000 unit PO HS RF: 0 Referrals Referrals: Nolan Brooks MD [Primary Care Provider] -
[2020-03-31 19:33] LABS: Basophils # (auto) 0.06 K/uL (0-0.2); Basophils % (auto) 0.5 %; Eosinophils # (auto) 0.22 K/uL (0-0.5); Eosinophils % (auto) 1.7 %; Hematocrit (blood only) 40.8 % (37-47); Hemoglobin 14.2 g/dL (12.0-16.0); Immature Granulocytes # (auto) 0.05 K/uL (0.00-0.02); Immature Granulocytes % (auto) 0.4 %; Lymphocytes # (auto) 1.83 K/uL (1.2-3.4); Mean Corpuscular Hemoglobin 32.1 pg (25-34); Mean Corpuscular Hgb Conc 34.8 g/dL (32-36); Mean Corpuscular Volume 92.3 fL (80-100); Mean Platelet Volume 10.2 fL (7.4-10.4); Monocytes # (auto) 0.88 K/uL (0.11-0.59); Monocytes % (auto) 6.7 %; Neutrophils # (auto) 10.04 K/uL (1.4-6.5); Neutrophils % (auto) 76.7 %; Platelet Count 297 K/uL (130-400); RDW Standard Deviation 44.1 fL (36.4-46.3); Red Blood Count 4.42 M/uL (4.2-5.4); White Blood Count 13.08 K/uL (4.8-10.8)
[2020-03-31 19:59] LABS: Albumin Level 3.8 gm/dl (3.4-5.0); BUN Creatinine Ratio 8.5 (10-20); Bilirubin,Total 0.2 mg/dl (0.2-1); Calcium 9.2 mg/dl (8.5-10.1); Creatinine Clr Calc Pharmacy 47.9 ml/min; Est GFR (African American) 50.4; Est GFR (Non-African American) 43.5; Globulin 3.8 gm/dl (2.5-4.0); Total Protein 7.6 gm/dl (6.4-8.2)
--- NOTE | 2020-03-31 20:28 | CT Scan Report ---
HEAD CT NONCONTRAST CT DOSE: 537.48 mGy.cm HISTORY: left sided numbness eval for cva TECHNIQUE: Multiaxial CT images of the head were performed without the use of intravenous contrast. A utomated exposure control was utilized for this study. A dose lowering technique was utilized adheri ng to the principles of ALARA. Comparison: None. Findings: The paranasal sinuses and mastoid air cells are clear. The calvarium and skull base are int act. Old small infarcts within the cerebellar hemispheres are again noted. There is symmetric hypoden sity within the white matter of the bilateral frontal lobes at the high convexity. This is new compar ed the prior studies. No mass, hematoma, midline shift. No acute infarct. Impression: Symmetric hypodensity within the white matter of the bilateral frontal lobes at the high convexity. T hese are new compared the prior studies and could represent areas of demyelination given the patient' s history of multiple sclerosis. Brain MRI can be used for further evaluation. ACT 112: Negative or not required by law. Electronically signed by: Alon Infante M.D. 03/31/2020 8:26 PM
[2020-03-31 20:33] LABS: Prothrombin Time 10.1 Seconds (9.0-12.0)
[2020-03-31 20:42] LABS: Magnesium 2.2 mg/dl (1.8-2.4)
[2020-03-31] MEDS ORDERED: methylPREDNISolone 1,000 MG in DEXTROSE 5% 250 ML IV STA (21:01)
[2020-03-31] MEDS ORDERED: BACLOFEN 10 MG TAB PO PRN (23:09)
[2020-03-31] MEDS ORDERED: NITROGLYCERIN SL 0.4 MG/TAB TAB SL PRN (23:09)
[2020-03-31] MEDS ORDERED: SODIUM CHLORIDE 0.9% 1000ML 1,000 ML IV SCH (23:09)
[2020-03-31] MEDS ORDERED: LORazepam 0.5 MG TAB PO PRN (23:09)
[2020-03-31] MEDS ORDERED: POTASSIUM CHLORIDE 20 MEQ TABCR PO STA (23:09)
[2020-03-31] MEDS ORDERED: ACETAMINOPHEN 325 MG TAB PO PRN (23:09)
--- NOTE | 2020-03-31 23:16 | History and Physical Report ---
DATE OF ADMISSION: 03/31/2020 CHIEF COMPLAINT: Lower extremity weakness. HISTORY OF PRESENT ILLNESS: This is a 49-year-old female with past medical history significant for hypertension, history of chronic kidney disease stage III, history [employer] demyelinating disease, possible neurosarcoidosis, migraine without aura, CHELSEA inhibitor intolerance, history of TIAs, history of recurrent sinus infections, allergic rhinitis, prolonged QT, regional enteritis, comes because of ongoing lower extremity weakness since 1 week and she was also getting left sided numbness on and off. Currently, there is no numbness, but still has some weakness in lower extremity and she also has some frontal headache. She has some difficulty with ambulation, because of the weakness. Currently resting comfortably and hemodynamically stable. Currently, denies any headache, no blurred vision, no earache, no runny nose, no sore throat. Appetite is okay. No difficulty swallowing, no cough, no shortness of breath, no chest pain, no nausea, no abdominal pain. Normal bowel and bladder movements. The tenderness and numbness in the left side of the body is improved currently and she reports some of it could be with the cervical stenosis. ALLERGIES: LISINOPRIL, NITROFURANTOIN, SERTRALINE, SULFA ANTIBIOTICS. PAST MEDICAL HISTORY: As mentioned above. PAST SURGICAL HISTORY: Benign left breast lesion excision, colonoscopy, cystoscopy with insertion of stent, EGDs, gastric biopsy, Silvio cyst left side drained, repair of nasal septum, total abdominal hysterectomy with removal of tubes. FAMILY HISTORY: Significant for father has hypertension. Mother has hypertension, anxiety, aunt has lung cancer. Maternal grandmother had pancreatic cancer, hypertension and anxiety. Paternal grandmother has hypertension. Paternal grandfather has hypertension. Maternal grandfather has hypertension. SOCIAL HISTORY: . No smoking. Alcohol 2-3 drinks per week. No drug use. REVIEW OF SYMPTOMS: As per HPI. Rest of review of symptoms negative. MEDICATIONS: The patient is on Tylenol 500mg mg p.o. q. 6 hours p.r.n., amlodipine 5 mg p.o. at bedtime, aspirin 81 mg p.o. a.m., baclofen 10 mg p.o. t.i.d. p.r.n., vitamin D 1000 units at bedtime, lorazepam 0.5 mg p.o. q. days p.r.n., losartan 12.5 mg p.o. q.a.m., multivitamin 1 tablet p.o. at bedtime, prednisone 20 mg p.o. q. 2 daily, Trintellix 5 mg p.o. at bedtime. PHYSICAL EXAMINATION: GENERAL: The patient is alert and oriented, not in acute distress. VITAL SIGNS: Temperature 36.4, pulse 98, respiratory rate 22, blood pressure 151/119, oxygen 98% room air. HEENT: No pallor, no icterus. Pupils equal, round, reactive to light. Oral mucosa moist. NECK: No JVD, no neck masses. CARDIOVASCULAR: S1, S2 heard, regular rate and rhythm, no murmur, no gallop. RESPIRATORY SYSTEM: Normal AP diameter. No accessory muscle use. No wheezing, no crackles. ABDOMEN: Soft, bowel sounds present, nontender. No distention. CENTRAL NERVOUS SYSTEM: Cranial nerves II-XII grossly intact, nonfocal. Power 5/5 in lower extremities. Sensation is intact. LABORATORY DATA: WBC 13, hemoglobin 14.2, hematocrit 40.8, platelets 297. PT 10.1, INR 1. Sodium 140, potassium 3, chloride 103, bicarbonate 29, BUN 12, creatinine 1.43, serum glucose 83, calcium 9.2, magnesium 2.2, total bilirubin 0.2, AST 12, ALT 17, alkaline phosphatase 56. IMAGING: CT of the head shows symmetric hypodensity within the white matter of the bilateral frontal lobes with high convexity. These are new compared to prior studies and could represent rate of demyelination given the patient's history of multiple sclerosis, brain MRI can be used for further evaluation. EKG: Shows normal sinus rhythm with sinus arrhythmia, rate of 87, QTC is 483, no significant change was found. ASSESSMENT AND PLAN: 1. This 49-year-old female presents with alternate on and off left sided numbness of the body and also lower extremity weakness for the last 1 week and ambulatory dysfunction, history of demyelinating disease, possible neurosarcoidosis flare, CT of the head showing symmetric hypodensity within the white matter of the bilateral frontal lobes with a high convexity, this is new compared to prior studies . ER spoke to neurology and recommended 1 gram of Solu-Medrol and brain MRI with and without contrast. We will admit the patient to the med/tele. Further steroids in the a.m. as per neurology. We will follow the MRI scan. PT and OT when stable. 2. Chronic kidney disease stage III. Presented creatinine of 1.43, seems to at baseline. We will follow the labs. 3. Hypokalemia, will replace. Follow repeat labs in a.m. 4. History of hypertension. Continue home medications of amlodipine and losartan. We will follow the blood pressure. 5. History of prolonged QT. We will follow the EKG. 6. Deep venous thrombosis prophylaxis, sequential compression devices for now. 7. Disposition: Observe in med/tele. Expect discharge home and follow with the family doctor and Neurology. Level 1 full code. MTDD
[2020-04-01] MEDS: TRINTELLIX~ORDER AWAITING ACTION SCH ×4 (01:39→21:14)
[2020-04-01 05:27] LABS: Hematocrit (blood only) 40.8 % (37-47); Immature Granulocytes # (auto) 0.03 K/uL (0.00-0.02); Immature Granulocytes % (auto) 0.2 %; Lymphocytes # (auto) 0.61 K/uL (1.2-3.4); Lymphocytes % (auto) 4.7 %; Mean Corpuscular Hemoglobin 31.5 pg (25-34); Mean Corpuscular Hgb Conc 34.3 g/dL (32-36); Mean Corpuscular Volume 91.9 fL (80-100); Monocytes # (auto) 0.05 K/uL (0.11-0.59); Monocytes % (auto) 0.4 %; Neutrophils # (auto) 12.24 K/uL (1.4-6.5); Neutrophils % (auto) 94.7 %; Platelet Count 306 K/uL (130-400); RDW Coefficient of Variation 12.9 % (11.5-14.5); RDW Standard Deviation 43.5 fL (36.4-46.3); Red Blood Count 4.44 M/uL (4.2-5.4); White Blood Count 12.93 K/uL (4.8-10.8)
[2020-04-01 05:55] LABS: BUN Creatinine Ratio 7.8 (10-20); Calcium 8.4 mg/dl (8.5-10.1); Est GFR (African American) 46.8; Est GFR (Non-African American) 40.4; Magnesium 2.1 mg/dl (1.8-2.4); Potassium 3.9 mmol/L (3.5-5.1)
[2020-04-01] MEDS: LOSARTAN POTASSIUM 25 MG TAB PO SCH (07:54)
[2020-04-01] MEDS: ASPIRIN 81 MG ECTAB PO SCH (07:54)
[2020-04-01] MEDS ORDERED: LORazepam 1 MG/2 ML VIAL IV PRN (08:02)
[2020-04-01] MEDS ORDERED: LORazepam 0.5 MG/1 ML VIAL IV ONE (08:30)
[2020-04-01] MEDS ORDERED: LORazepam 1 MG/2 ML VIAL IV STA (10:11)
--- NOTE | 2020-04-01 10:39 | Progress Notes ---
DATE: 04/01/2020 REASON FOR CONSULTATION: New neurologic symptoms. HISTORY OF PRESENT ILLNESS: The patient is a 49-year-old female with hypertension, chronic kidney disease, migraine, history of cerebellar infarction, prolonged QT and regional enteritis, comes in because of an ongoing bilateral lower extremity weakness, which has been present for about 1 week and a superimposed on left-sided face, arm, and leg numbness for the day of admission. 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 She has had chronic headaches, multiple episodes of transient tingling and numbness on one side of the face, arm or leg or the other usually lasting minutes to hours, but sometimes longer, not always associated with a headache. Multiple MRIs have shown ring enhancing lesions within the parenchyma, meningeal enhancement with nodular enhancement. She has had multiple lumbar punctures, the results of which have been variable. The last lumbar puncture in November showed a white count of 9, a normal total protein, normal glucose and negative cultures. She has chronically and intermittently taking low dose prednisone. She is currently taking 20 mg every other day at home. She has had multiple courses of 3 days of Solu-Medrol followed by oral tapers. She has been on Imuran for [address] Agarwal is trying to authorize Humira. There is some chronic neck and back pain which has been unchanged with this episode. There is no Lhermitte's phenomenon. No incontinence of bowel or bladder. Other than the left hemianesthesia which has resolved there were no sensory symptoms in the lower. There are no radicular symptoms. She has not recently been ill. She has not had any head or neck trauma. Her headache is unchanged. There is no neck stiffness per se. No sore throat, shortness of breath was noted only when she noted a left hemianesthesia. No cough, nausea, vomiting, diarrhea. There is no change in vision such as blind spots or scintillating visual phenomenon. Speech and language with this episode are well maintained. CT of the head shows new frontal hypodensities. MRI of the brain and cervical spine have not yet been performed. Electrocardiogram shows normal sinus rhythm, prolonged QT. Low voltage QRS. LABORATORY DATA: Notable for a white count of 13, otherwise H and H are normal with mild left shift of neutrophils of 10. PT/INR are normal. Chemistry profile notable for a potassium of 3 and creatinine of 1.4, normal transaminases. No urinalysis performed. The patient has received 1 gram of IV Solu-Medrol and feels unchanged. 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 She has allergic rhinitis and recurrent sinus infections and regional enteritis, which has not been treated for some time due to absence of a flare. ALLERGIES: LISINOPRIL, NITROFURANTOIN, SERTRALINE, SULFA ANTIBIOTICS. PAST SURGICAL HISTORY: Benign left breast excision, colonoscopy, cystoscopy, EGDs, gastric biopsy, Silvio cyst drained, repair of nasal septum, total abdominal hysterectomy with removal of tubes. FAMILY HISTORY: Father, hypertension. Mother, hypertension, anxiety and lung cancer. Maternal grandmother, pancreatic cancer, hypertension and anxiety. The patient has no children. She has multiple family members with lupus and autoimmune disorder. SOCIAL HISTORY: , nonsmoker, drinks alcohol. Works at [employer] REVIEW OF SYSTEMS: As above. Weight has been gradually increasing on prednisone. HOME MEDICATIONS: Tylenol, amlodipine, aspirin, baclofen, vitamin D, lorazepam, losartan, multiple vitamins, prednisone 20 mg every other day and Trintellix at bedtime. PHYSICAL EXAMINATION: VITAL SIGNS: 149/98, 85, 19, 36.8, 95% on room air. GENERAL: The patient is awake and alert. Speech and language are normal. Affect is appropriate. She is in no distress. NECK: Supple. There are no carotid bruits. HEART: No heart murmurs. Heart is regular rate and rhythm. NEUROLOGIC: Pupils are myotic but reactive. I could not reliably visualize the optic nerves. There is normal marr, motility, facial sensation and facial symmetry. Tongue is midline. Motor: Normal bulk and tone. There is full strength, no drift. Normal rapid alternating movements. Oltqfz-fm-gygm and xiln-dk-yizp are normal. There is no dysdiadochokinesia. Gait is mildly wide based with the sense that her proprioception may be poor. She has mild difficulty with tandem and Romberg is positive. Sensory examination is entirely normal. There is intact vibration sense at the toes light touch and temperature bilaterally. IMPRESSION: 1. This patient has had a relapsing remitting neurologic symptoms with multiple imaging studies at time showing meningeal enhancement, basilar nodular meningeal enhancement, intraparenchymal lesions with enhancement that have resolved well in general with IV steroids. She is on immunosuppressant with Imuran, prednisone and is to begin Humira once approved. At this junction, I would continue 3 days of IV steroids followed by a prednisone taper 80 mg for 2 days, 60 mg for 4 days, 40 mg for 4 days, 20 mg for 4 days, 10 mg for 4 days and then switch back to her baseline dose of 20 mg every other day. I would recommend an MRI of the brain and cervical spine with and without contrast. A vitamin B12 level. Physical therapy and occupational therapy. I see no worrisome meningeal signs to suggest that she needs a lumbar puncture. 2. History of cerebellar infarction. Continue antiplatelet therapy with aspirin. We will follow with you. Post discharge, the patient should see Dr. Aurelia Agarwal and Jayant Thomson.
--- NOTE | 2020-04-01 10:57 | Hospitalist Progress Note ---
Date of Service April 01, 2020 Assessment & Plan (1) Neurological symptoms: Demyelinating Disease -as per admission History and Physical by Dr. Forman "This is a 49-year-old female with past medical history significant for hypertension, history of chronic kidney disease stage III, history [employer] demyelinating disease, possible neurosarcoidosis, migraine without aura, CHELSEA inhibitor intolerance, history of TIAs, history of recurrent sinus infections, allergic rhinitis, prolonged QT, regional enteritis, comes because of ongoing lower extremity weakness since 1 week and she was also getting left sided numbness on and off. Currently, there is no numbness, but still has some weakness in lower extremity and she also has some frontal headache. She has some difficulty with ambulation, because of the weakness. -04/01/2020 day time hospitalist was present with neurology Dr. Lawrence during neurology physical exam and that as in Dr. Lawrence's neurological assessment that "Normal bulk and tone. There is full strength, no drift. Normal rapid alternating movements. Eorwqs-xz-yayc and irqr-td-zbvv are normal. There is no dysdiadochokinesia. Gait is mildly wide based with the sense that her proprioception may be poor. She has mild difficulty with tandem and Romberg is positive. Sensory examination is entirely normal. There is intact vibration sense at the toes light touch and temperature bilaterally." -hospitalist agrees with neurology service plans as described by Dr. Lawrence "This patient has had a relapsing remitting neurologic symptoms with multiple imaging studies at time showing meningeal enhancement, basilar nodular meningeal enhancement, intraparenchymal lesions with enhancement that have resolved well in general with IV steroids. She is on immunosuppressant with Imuran, prednisone and is to begin Humira once approved. At this junction, I would continue 3 days of IV steroids followed by a prednisone taper 80 mg for 2 days, 60 mg for 4 days, 40 mg for 4 days, 20 mg for 4 days, 10 mg for 4 days and then switch back to her baseline dose of 20 mg every other day. I would recommend an MRI of the brain and cervical spine with and without contrast. A vitamin B12 level. Physical therapy and occupational therapy." History of cerebellar infarction in the past -Continue antiplatelet therapy with aspirin (2) Acute hypokalemia: -serum potassium 3 on this hospital presentation -is 3.9 as of most recent labs after potassium supplementation Chronic kidney disease stage III -Presented creatinine of 1.43, seems to at baseline. Hypertension -Continue home medications of amlodipine and losartan. mildly prolonged QTC by EKG -no acute cardiac symptoms at this time Deep venous thrombosis prophylaxis, sequential compression devices Full Code Admission and Anticipated Discharge Date Admission Date: March 31, 2020 Subjective I was present with neurology Dr. Lawrence during neurology physical exam and that as in Dr. Lawrence's neurological assessment that "Normal bulk and tone. There is full strength, no drift. Normal rapid alternating movements. Tjmxog-lk-hwvi and fenc-gy-zllg are normal. There is no dysdiadochokinesia. Gait is mildly wide based with the sense that her proprioception may be poor. She has mild difficulty with tandem and Romberg is positive. Sensory examination is entirely normal. There is intact vibration sense at the toes light touch and temperature bilaterally." Review of Systems Review of Systems: All systems reviewed & are unremarkable except as noted in Subjective Physical Exam Constitutional: cooperative and comfortable Eyes: EOM intact bilaterally ENMT: external ear and nose normal, oropharynx normal Respiratory: normal respiratory effort, lungs clear to auscultation Cardiovascular: Rate/Rhythm: regular rate Gastrointestinal (Abdomen): normal bowel sounds, soft, nontender, no hepatosplenomegaly Musculoskeletal: Head/Neck/Chest: normocephalic and head atraumatic Neurologic: see neurology note on 04/01/2020 Psychiatric: A+Ox3, euthymic affect Results & Data Results & Data ([facility]) Vital Signs (Past 12 Hours) Vital Signs Temp Pulse Pulse Resp BP BP Pulse Ox 04/01/20 07:30 85 04/01/20 07:16 36.8 C 90 19 149/98 H 95 04/01/20 02:53 36.8 C 63 19 138/82 94 04/01/20 00:38 37.0 C 88 16 160/90 H 98 04/01/20 00:00 87 03/31/20 23:00 37.2 C 90 18 161/101 H 162/101 H 98
[2020-04-01] MEDS ORDERED: GADOBUTROL 65ML VIAL IV ONE (11:27)
--- NOTE | 2020-04-01 12:38 | Magnetic Resonance Report ---
MRI OF THE BRAIN COMBO CLINICAL HISTORY: Lower extremity weakness. History of neurosarcoidosis. COMPARISON STUDY: MRI of the brain dated 11/13/2019. CT of the brain dated 03/31/2020. TECHNIQUE: MRI of the brain was performed utilizing various T1 and T2-weighted sequences in the axial , sagittal, and coronal planes. Contrast-enhanced sequences were acquired following the administratio n of 7.5 cc of Gadavist. The examination is performed using the multiple sclerosis protocol. FINDINGS: Brain parenchyma: Bilateral foci of cerebellar encephalomalacia are unchanged and consistent remote i nsults. There is extensive and symmetric edema identified within the bilateral parietal white matter with associated abnormal patchy and linear foci of enhancement. This extends from the periventricular region to the cortex. Additional nodular focus of nodular cortical/laryngeal enhancement is seen in the right frontal lobe. A small focus of enhancement within the quique is unchanged from previous and m ay resent a small capillary telangiectasia. The white matter edema is new from previous. The abnormal enhancement is similar in appearance to prior studies but differs in distribution from the 11/13/2019 examination. Overall the degree of leptomeningeal thickening and enhancement has decreased from previ ous. There is no hemorrhage or midline shift. There is no restricted diffusion to suggest acute ische sammi. No extra-axial fluid collection is seen. The cerebellar tonsils are normal in configuration. Ventricles, sulci, and cisterns: Normal in configuration. Pituitary and sella: Unremarkable. Intracranial vasculature: Normal flow voids are maintained at the skull base. Orbits: The bony orbits are grossly intact. Orbital contents are normal in appearance. Sinuses and mastoids: Trace mucosal thickening is noted in the maxillary antra. The remaining paranas al sinuses are clear. The mastoid air cells are well pneumatized. Calvarium: Unremarkable. Cervical cord: Partially visualized cervical spinal cord is normal in morphology and signal intensity . IMPRESSION: 1. There is marked and symmetric edema identified involving the biparietal white matter with patchy a bnormal enhancement which also involves the overlying cortex and leptomeninges. The white matter vipul a is new from 11/13/2019 and is consistent with a nonspecific leukoencephalopathy. Top differential con siderations include encephalitic neurosarcoidosis, PML, ADEM, or possibly treatment related change. T he appearance is atypical for multiple sclerosis which is also not excluded. Other etiologies such as infection or neoplasm are considered less likely but within the differential. 2. There is no hemorrhage, significant mass effect, or evidence of acute ischemia. ACT 112: Negative or not required by law. Electronically signed by: Roman Girard M.D. 04/01/2020 12:36 PM
[2020-04-01] MEDS ORDERED: METOPROLOL TARTRATE 1 MG/ML VIAL IV STA (13:00)
--- NOTE | 2020-04-01 14:26 | Magnetic Resonance Report ---
MRI OF THE CERVICAL SPINE COMBO CLINICAL HISTORY: Neck pain. COMPARISON STUDY: MRI of the cervical spine dated 11/13/2019. TECHNIQUE: MRI of the cervical spine is performed using various T1 and T2-weighted sequences in the a xial and sagittal planes. Contrast-enhanced sequences are acquired following the IV administration of 7.5 cc of Gadavist. The examination is degraded by motion artifact. FINDINGS: Cervical spine: Vertebral body height and alignment are maintained throughout the cervical spine. The re is straightening of the cervical lordosis with reversal centered at C5. Anterior osteophytes are s een throughout. The atlantodental articulation is maintained. The spinous processes appear intact. No destructive bony lesion is seen. Chronic degenerative endplate change is noted at C6-C7. No signific ant endplate edema is identified. Intervertebral discs: Degenerative disc desiccation is seen throughout the cervical spine. There is m oderate loss of height at C5-C6 and C6-C7. Spinal cord: The cervical spinal cord is normal in morphology and signal intensity. There is no abnor mal postcontrast enhancement. C2-C3: Mild facet arthropathy is of no consequence. The central canal and neural foramina are patent. C3-C4: A posterior disc osteophyte complex minimally effaces the ventral subarachnoid space. The cent ral canal and neural foramina are clear. Mild facet arthropathy is of no consequence. C4-C5: A posterior disc osteophyte complex abuts the ventral cord. Mild facet arthropathy is of no co nsequence. The neural foramina are patent. C5-C6: A posterior disc osteophyte complex eccentric to the left minimally effaces the ventral cord. Uncovertebral and facet arthropathy cause moderate to severe left and moderate right neural foraminal stenosis. C6-C7: A posterior disc osteophyte complex eccentric to the left minimally effaces the ventral cord. Uncovertebral and facet arthropathy causes moderate left greater than right neural foraminal stenosis . C7-T1: Unremarkable. Soft tissues: The prevertebral and paraspinous soft tissues are normal in appearance. Brain parenchyma: Foci of encephalomalacia are noted in the cerebellum. IMPRESSION: 1. The cervical spinal cord is normal in morphology. There is no abnormal postcontrast enhancement or mass lesion seen. 2. Degenerative disc disease and cervical spondylosis as above. See discussion for detailed level by level analysis. Dictated: 04/01/2020 1:18 PM Transcribed: 04/01/2020 2:10 PM Lyn [id number] [email or web address] Electronically signed by: Roman Girard M.D. 04/01/2020 2:25 PM
[2020-04-01] MEDS: methylPREDNISolone 1,000 MG in DEXTROSE 5% 250 ML IV SCH (15:36)
[2020-04-01] MEDS ORDERED: SODIUM CHLORIDE 0.9% 1000ML 1,000 ML IV SCH (16:00)
[2020-04-01] MEDS ORDERED: GLUCOSE 10 TABS/TUBE PO PRN (16:15)
[2020-04-01] MEDS ORDERED: GLUCAGON FOR INJ 1 MG VIAL IM PRN (16:15)
[2020-04-01] MEDS ORDERED: GLUCOSE 40% GEL 15 GM TUBE PO PRN (16:15)
[2020-04-01] MEDS ORDERED: DEXTROSE 50% 50 ML SYRINGE IV PRN (16:15)
[2020-04-01] MEDS ORDERED: CARBOHYDRATES FOR HYPOGLYCEMIA PO PRN (16:15)
[2020-04-01] MEDS: INSULIN ASPART 100 UNITS/ML 3 ML PEN SC SCH ×2 (16:38→20:17)
--- NOTE | 2020-04-01 16:48 | Electrocardiogram Report ---
Test Reason : Blood Pressure : / mmHG Vent. Rate : 087 BPM Atrial Rate : 087 BPM P-R Int : 142 ms QRS Dur : 074 ms QT Int : 402 ms P-R-T Axes : 040 030 003 degrees QTc Int : 483 ms Normal sinus rhythm with sinus arrhythmia Nonspecific T wave abnormality Abnormal ECG When compared with ECG of 12-NOV-2019 14:52, No significant change was found Confirmed by Dereje Rice ([id number]) on 04/01/2020 4:47:38 PM Referred By: REFERRED SELF Confirmed By:Javier Rice
--- NOTE | 2020-04-01 16:55 | Electrocardiogram Report ---
Test Reason : Blood Pressure : / mmHG Vent. Rate : 087 BPM Atrial Rate : 087 BPM P-R Int : 140 ms QRS Dur : 072 ms QT Int : 392 ms P-R-T Axes : 064 054 082 degrees QTc Int : 471 ms Normal sinus rhythm Low voltage QRS Nonspecific T wave abnormality Prolonged QT Abnormal ECG When compared with ECG of 31-MAR-2020 19:09, (unconfirmed) Nonspecific T wave abnormality has replaced inverted T waves in Inferior leads Confirmed by Dereje Rice ([id number]) on 04/01/2020 4:55:13 PM Referred By: REFERRED SELF Confirmed By:Javier Rice
[2020-04-01] MEDS ORDERED: MULTIVITAMIN TAB PO SCH (21:00)
[2020-04-01] MEDS ORDERED: AMLODIPINE BESYLATE 5 MG TAB PO SCH (21:00)
[2020-04-01] MEDS ORDERED: CHOLECALCIFEROL 1,000 UNITS 25 MCG TAB PO SCH (21:00)
[2020-04-02 07:18] LABS: Hematocrit (blood only) 38.3 % (37-47); Hemoglobin 12.9 g/dL (12.0-16.0); Mean Corpuscular Hemoglobin 31.2 pg (25-34); Mean Corpuscular Hgb Conc 33.7 g/dL (32-36); Mean Corpuscular Volume 92.7 fL (80-100); Platelet Count 291 K/uL (130-400); RDW Coefficient of Variation 13.1 % (11.5-14.5); RDW Standard Deviation 44.4 fL (36.4-46.3); Red Blood Count 4.13 M/uL (4.2-5.4); White Blood Count 22.34 K/uL (4.8-10.8)
[2020-04-02 07:27] LABS: Immature Granulocytes # (auto) 0.08 K/uL (0.00-0.02); Immature Granulocytes % (auto) 0.4 %; Lymphocytes # (auto) 0.97 K/uL (1.2-3.4); Lymphocytes % (auto) 4.3 %; Monocytes # (auto) 0.63 K/uL (0.11-0.59); Monocytes % (auto) 2.8 %; Neutrophils # (auto) 20.66 K/uL (1.4-6.5); Neutrophils % (auto) 92.5 %
[2020-04-02 07:34] LABS: Albumin Level 3.2 gm/dl (3.4-5.0); BUN Creatinine Ratio 12.4 (10-20); Calcium 8.9 mg/dl (8.5-10.1); Creatinine Clr Calc Pharmacy 43.7 ml/min; Est GFR (Non-African American) 38.9; Potassium 3.7 mmol/L (3.5-5.1)
[2020-04-02 07:36] LABS: Bilirubin,Total 0.4 mg/dl (0.2-1); Globulin 3.3 gm/dl (2.5-4.0); Total Protein 6.5 gm/dl (6.4-8.2)
[2020-04-02] MEDS: LOSARTAN POTASSIUM 25 MG TAB PO SCH (08:04)
[2020-04-02] MEDS: ASPIRIN 81 MG ECTAB PO SCH (08:04)
[2020-04-02] MEDS: TRINTELLIX~ORDER AWAITING ACTION SCH (08:05)
[2020-04-02] MEDS: INSULIN ASPART 100 UNITS/ML 3 ML PEN SC SCH ×2 (08:05→12:36)
--- NOTE | 2020-04-02 13:12 | Progress Notes ---
DATE: 04/02/2020 SUBJECTIVE: I am seeing Sandy in followup as what is a demyelinating disorder with basilar meningitis, thought to be neurosarcoidosis. She has received 2 doses of IV Solu-Medrol and in general is feeling better in terms of gait. Physical therapy has seen her and does not think she needs any assistive devices or any outpatient physical therapy. She did not sleep well last night, but that was because she was woken up for multiple vitals check and labs. She has no new neurologic symptoms. Her headache has resolved. PHYSICAL EXAMINATION: 137/88, 98, 18. The patient is awake and alert. Speech and language are normal. Pupils are myotic but reactive. Normal visual marr, motility, facial symmetry. Strength appears full. Reflexes are nonpathologic. Toes are downgoing. Olorns-al-bcmp and szjw-zw-xbsm are normal. Her gait is mildly tentative but not as wide based. IMPRESSION AND PLAN: Pt with presumed neurosarcoidosis. Change in gait, secondary bifrontal demyelinating lesions with edema and enhancement. The patient is improved status post 2 days of steroids. Pt is to complete 3 d IV steroids followed by oral taper Cervical spineMRI showing no cord lesions, although some discogenic disease, more so leftward than right. The patient is pursuing issues related to neck pain as an outpatient and is scheduled to have a nerve conduction EMG, I believe, of the left upper extremity. I have cautioned the patient to ambulate carefully since her gait is still mildly abnormal. She may want to consider using a cane or certainly taking her time to get up and make turns. She should see Dr. Agarwal and Dr. Thomson within 2-3 weeks. I have reached out to Dr. Agarwal sending her clinical summary and pushing the images of MRI of the brain and cervical spine into the [employer] system. KENNEDY
--- NOTE | 2020-04-02 13:28 | Hospitalist Progress Note ---
Date of Service April 02, 2020 Assessment & Plan (1) Neurological symptoms: Neurosarcoidosis with Central Nervous System Demyelination Leukocytosis from systemic steroids -as per admission History and Physical by Dr. Forman "This is a 49-year-old female with past medical history significant for hypertension, history of chronic kidney disease stage III, history ANIMAL IMPERSONATOR demyelinating disease, possible neurosarcoidosis, migraine without aura, CHELSEA inhibitor intolerance, history of TIAs, history of recurrent sinus infections, allergic rhinitis, prolonged QT, regional enteritis, comes because of ongoing lower extremity weakness since 1 week and she was also getting left sided numbness on and off. Currently, there is no numbness, but still has some weakness in lower extremity and she also has some frontal headache. She has some difficulty with ambulation, because of the weakness. -04/01/2020 day time hospitalist was present with neurology Dr. Lawrecne during neurology physical exam and that as in Dr. Lawrence's neurological assessment that "Normal bulk and tone. There is full strength, no drift. Normal rapid alternating movements. Lcnwre-bu-olvq and swud-ck-zmew are normal. There is no dysdiadochokinesia. Gait is mildly wide based with the sense that her proprioception may be poor. She has mild difficulty with tandem and Romberg is positive. Sensory examination is entirely normal. There is intact vibration sense at the toes light touch and temperature bilaterally." -hospitalist agrees with neurology service plans as described by Dr. Lawrence on 04/01/2020 "This patient has had a relapsing remitting neurologic symptoms with multiple imaging studies at time showing meningeal enhancement, basilar nodular meningeal enhancement, intraparenchymal lesions with enhancement that have resolved well in general with IV steroids. She is on immunosuppressant with Imuran, prednisone and is to begin Humira once approved. At this junction, I would continue 3 days of IV steroids followed by a prednisone taper 80 mg for 2 days, 60 mg for 4 days, 40 mg for 4 days, 20 mg for 4 days, 10 mg for 4 days and then switch back to her baseline dose of 20 mg every other day. I would recommend an MRI of the brain and cervical spine with and without contrast. A vitamin B12 level. Physical therapy and occupational therapy." -normal serum B12 levels -White Blood cell count of 22,000 on 04/02/2020 is from hospital course of solumedrol prednisone prescription sent electronically to [address] [id number] start in 04/03/2020 the prednisone taper 80 mg daily for 2 days, 60 mg daily for 4 days, 40 mg daily for 4 days, 20 mg daily for 4 days, 10 mg daily for 4 days and then switch back to her baseline dose of 20 mg every other day as recommended by neurology Dr. Lawrence Patient is recommended by Dr. Lawrence for following up in 2 to [address] Thomson at neurology clinic [address] [address] phone (and Dr. Agarwal) patient is cleared by PT/OT evaluations but Dr. Lawrence cautioned " patient to ambulate carefully since her gait is still mildly abnormal. She may want to consider using a cane or certainly taking her time to get up and make turns " patient may need earlier followup appointments with primary care for repeat labs previously scheduled appointments 04/03/2020 11:00 AM Provider [facility] Neurology, [facility] Department Pharmacy Neurology [facility] Daniel 04/04/2020 3:00 PM Provider Nurse Edin Hamlin 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 patient was given potassium supplements in the hospital serum potassium 3.7 on 04/02/2020. potassium 15 meq daily for 7 days sent electronically to [address] [address] Chronic kidney disease stage III -within baseline Hypertension -Continue home medications of amlodipine and losartan. mildly prolonged QTC by EKG -no acute cardiac symptoms Deep venous thrombosis prophylaxis, sequential compression devices Full Code Admission and Anticipated Discharge Date Admission Date: March 31, 2020 Subjective Patient reports she is ambulating sufficiently for her to feel confident in returning home for discharge. Patient denies acute distress. no fevers. no gross edema from the steroids. on room air. no shortness of breath. no chest pain. no abdomen pain. no headache. no dizziness. Review of Systems Review of Systems: All systems reviewed & are unremarkable except as noted in Subjective Physical Exam Constitutional: cooperative and comfortable Eyes: EOM intact bilaterally ENMT: external ear and nose normal, oropharynx normal Neck: trachea midline, no thyromegaly normal visual inspection Respiratory: normal respiratory effort, lungs clear to auscultation Cardiovascular: Rate/Rhythm: regular rate Gastrointestinal (Abdomen): normal bowel sounds, soft, nontender, no hepatosplenomegaly Musculoskeletal: Head/Neck/Chest: normocephalic and head atraumatic Neurologic: PERRL, EOMI, accommodation nl, no face palsy, no dysarthria moves all extremities Psychiatric: A+Ox3, euthymic affect Results & Data Results & Data ([facility]) Vital Signs (Past 12 Hours) Vital Signs Temp Pulse Pulse Resp BP BP Pulse Ox 04/02/20 11:11 37.0 C 98 H 18 137/88 96 04/02/20 07:17 36.9 C 82 18 137/83 95 04/02/20 07:08 84 04/02/20 05:18 99 H 04/02/20 03:00 36.8 C 92 H 18 153/90 H 97
--- NOTE | 2020-04-02 13:34 | Discharge Summary ---
Date of Service April 02, 2020 Admission HPI Per Admitting Provider DATE OF ADMISSION: 03/31/2020 CHIEF COMPLAINT: Lower extremity weakness. 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 Currently, there is no numbness, but still has some weakness in lower extremity and she also has some frontal headache. She has some difficulty with ambulation, because of the weakness. Currently resting comfortably and hemodynamically stable. Currently, denies any headache, no blurred vision, no earache, no runny nose, no sore throat. Appetite is okay. No difficulty swallowing, no cough, no shortness of breath, no chest pain, no nausea, no abdominal pain. Normal bowel and bladder movements. The tenderness and numbness in the left side of the body is improved currently and she reports some of it could be with the cervical stenosis. Principal Diagnosis Neurosarcoidosis with Central Nervous System Demyelination Hypokalemia (corrected) Hypertension Chronic kidney disease stage III Leukocytosis from systemic steroids Discharge Exam Constitutional cooperative and comfortable Eyes EOM intact bilaterally ENMT external ear and nose normal, oropharynx normal Neck trachea midline, no thyromegaly normal visual inspection Respiratory normal respiratory effort, lungs clear to auscultation Cardiovascular Rate/Rhythm: regular rate Gastrointestinal (Abdomen) normal bowel sounds, soft, nontender, no hepatosplenomegaly Musculoskeletal Head/Neck/Chest: normocephalic and head atraumatic Neurologic PERRL, EOMI, accommodation nl, no face palsy, no dysarthria moves all extremities Psychiatric A+Ox3, euthymic affect Discharge Data Allergies Allergy/AdvReac Type Severity Reaction Status Date / Time Sulfa (Sulfonamide Allergy Intermediate FACIAL Verified 03/31/20 21:17 Antibiotics) SWELLING nitrofurantoin Allergy Unknown RASH Verified 03/31/20 21:17 lisinopril AdvReac Unknown COUGH Verified 03/31/20 21:17 sertraline AdvReac Unknown Hypertensio Verified 03/31/20 21:17 n Consultations 09/18/20 21:00 ED Decision to Admit Stat 03/31/20 23:09 Consult Case Management - Discharge Planning Routine 04/01/20 08:00 Consult Neurology Routine Ordered Studies 03/31/20 18:56 CT head/brain wo con Stat 03/31/20 23:09 MR brain wo/w con Routine 04/01/20 09:39 MR cervical spine wo/w con Routine 04/01/20 12:48 MR cervical spine wo/w con Routine Hospital Course (1) Neurological symptoms: Neurosarcoidosis with Central Nervous System Demyelination Leukocytosis from systemic steroids -as per admission History and Physical by Dr. Forman "This is a 49-year-old female with past medical history significant for hypertension, history of chronic kidney disease stage III, history SAP DATA ARCHITECT demyelinating disease, possible neurosarcoidosis, migraine without aura, CHELSEA inhibitor intolerance, history of TIAs, history of recurrent sinus infections, allergic rhinitis, prolonged QT, regional enteritis, comes because of ongoing lower extremity weakness since 1 week and she was also getting left sided numbness on and off. Currently, there is no numbness, but still has some weakness in lower extremity and she also has some frontal headache. She has some difficulty with ambulation, because of the weakness. -04/01/2020 day time hospitalist was present with neurology Dr. Lawrence during neurology physical exam and that as in Dr. Lawrence's neurological assessment that "Normal bulk and tone. There is full strength, no drift. Normal rapid alternating movements. Dtzgey-hq-lkfh and stbg-xl-arcc are normal. There is no dysdiadochokinesia. Gait is mildly wide based with the sense that her proprioception may be poor. She has mild difficulty with tandem and Romberg is positive. Sensory examination is entirely normal. There is intact vibration sense at the toes light touch and temperature bilaterally." -hospitalist agrees with neurology service plans as described by Dr. Lawrence on 04/01/2020 "This patient has had a relapsing remitting neurologic symptoms with multiple imaging studies at time showing meningeal enhancement, basilar nodular meningeal enhancement, intraparenchymal lesions with enhancement that have resolved well in general with IV steroids. She is on immunosuppressant with Imuran, prednisone and is to begin Humira once approved. At this junction, I would continue 3 days of IV steroids followed by a prednisone taper 80 mg for 2 days, 60 mg for 4 days, 40 mg for 4 days, 20 mg for 4 days, 10 mg for 4 days and then switch back to her baseline dose of 20 mg every other day. I would recommend an MRI of the brain and cervical spine with and without contrast. A vitamin B12 level. Physical therapy and occupational therapy." -normal serum B12 levels -White Blood cell count of 22,000 on 04/02/2020 is from hospital course of solumedrol (patient to receive 3rd daily dose of solumedrol 1000 mg IV on 04/02/2020 prior to discharge) prednisone prescription sent electronically to [facility], [place] [address] start in 04/03/2020 the prednisone taper 80 mg daily for 2 days, 60 mg daily for 4 days, 40 mg daily for 4 days, 20 mg daily for 4 days, 10 mg daily for 4 days and then switch back to her baseline dose of 20 mg every other day as recommended by neurology Dr. Lawrence Patient is recommended by Dr. Lawrence for following up in 2 to [address] Thomson at neurology clinic [address], [place] [address] phone (and Dr. Agarwal) patient is cleared by PT/OT evaluations but Dr. Lawrence cautioned " patient to ambulate carefully since her gait is still mildly abnormal. She may want to consider using a cane or certainly taking her time to get up and make turns " patient may need earlier followup appointments with primary care for repeat labs previously scheduled appointments 04/03/2020 11:00 AM Provider [facility], [facility] Department Pharmacy Neurology [facility], Daniel 04/04/2020 3:00 PM Provider Nurse Edin Hamlin [facility] Department Ancillary [facility] 04/14/2020 8:30 AM Provider Jayant Thomson MD Department Neurophysiology [facility] 06/05/2020 1:00 PM Provider Aurelia Agarwal MD Department Neurology [facility] 06/12/2020 9:00 AM Provider CAILIN HareC Department Nephrology, [facility] 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 patient was given potassium supplements in the hospital serum potassium 3.7 on 04/02/2020. potassium 15 meq daily for 7 days [place] [address] Chronic kidney disease stage III -within baseline Hypertension -Continue home medications of amlodipine and losartan. mildly prolonged QTC by EKG -no acute cardiac symptoms Deep venous thrombosis prophylaxis, sequential compression devices Full Code Total Time Total Time Spent Total Time Spent (In Minutes): 40 minutes Total Time Includes: Examination of the Patient, Discharge Planning, Medication Reconciliation and Communication With Other Providers Discharge Plan Discharge Items Patient Disposition: Home - Self-Care Reason For Visit: LOWER EXTREMITY WEAKNESS Discharge Diagnosis: Neurosarcoidosis with Central Nervous System Demyelination Hypokalemia (corrected) Hypertension Chronic kidney disease stage III Leukocytosis from systemic steroids Condition on Discharge: Fair Activity: Per Instructions section Non-emergency contact: Primary Care Provider and Neurologist Call non-emergency contact if: you have any medication questions Follow-up/Referrals: Nolan Brooks MD [Primary Care Provider] - Diet: Heart Healthy Addtl Attending Provider Instructions: serum potassium of 3 on initial presentation. patient was given potassium supplements in the hospital serum potassium 3.7 on 04/02/2020. potassium 15 meq daily for 7 days sent electronically to [address] [address] White Blood cell count of 22,000 on 04/02/2020 is from hospital course of solumedrol prednisone prescription sent electronically to [address] [address] start in 04/03/2020 the prednisone taper 80 mg daily for 2 days, 60 mg daily for 4 days, 40 mg daily for 4 days, 20 mg daily for 4 days, 10 mg daily for 4 days and then switch back to her baseline dose of 20 mg every other day as r ecommended by neurology Dr. Lawrence Patient is recommended by Dr. Lawrence for following up in 2 to [address] Thomson at neurology clinic [address], [place] [address] phone (and Dr. Garay) patient is cleared by PT/OT evaluations but Dr. Lawrence cautioned " patient to ambulate carefully since her gait is still mildly abnormal. She may want to consider using a cane or certainly taking her time to get up and make turns " patient may need earlier followup appointments with primary care for repeat labs previously scheduled appointments 04/03/2020 11:00 AM Provider [facility], [facility] Department Pharmacy Neurology Daniel HINES 04/04/2020 3:00 PM Provider Nurse Edin Molina [facility] Department Ancillary [facility] dillon [facility] 04/14/2020 8:30 AM Provider Jayant Thomson MD Department Neurophysiology [facility] 06/05/2020 1:00 PM Provider Aurelia Agarwal MD Department Neurology [facility] 06/12/2020 9:00 AM Provider Betsy Marroquin PA-C Department Nephrology, [facility] Pending Studies at Discharge: No Stand-Alone Forms: [facility] [employer], Smoking Cessation Medications and DC Order Prescriptions: New potassium chloride 15 mEq tablet,ER particles/crystals 15 meq PO DAILY 7 Days Qty: 7 RF: 0 prednisone 20 mg tablet 20 mg PO UD 18 Days Qty: 34 RF: 0 Continued aspirin [Aspir-81] 81 mg Tablet,Delayed Release (Dr/Ec) 81 mg PO QAM RF: 0 baclofen 10 mg tablet 10 mg PO TID PRN (Reason: Back Pain) RF: 0 multivitamin Tablet 1 tab PO HS RF: 0 acetaminophen [Tylenol Extra Strength] 500 mg Tablet 500 - 1,000 mg PO Q6H PRN (Reason: Fever Or Pain) RF: 0 lorazepam 0.5 mg tablet 0.5 mg PO Q2D PRN (Reason: Anxiety) RF: 0 amlodipine 10 mg tablet 5 mg PO HS RF: 0 losartan 25 mg tablet 12.5 mg PO QAM RF: 0 Trintellix 5 mg tablet 5 mg PO HS RF: 0 cholecalciferol (vitamin D3) [Vitamin D3] 25 mcg (1,000 unit) Capsule 1,000 unit PO HS RF: 0 Discontinued prednisone 20 mg tablet 20 mg PO Q2D RF: 0 Discharge Orders: Discharge Order (Routine); Ordered 04/02/20 Ordered By: Kevin Hightower Admission Data Admit Date/Time: 03/31/20 21:49 Attending Provider: Kevin Hightower Admit Provider: Julian Forman Primary Care Provider: Nolan Brooks Other Providers: Julian Forman ; Julisa Jesus
[2020-04-02] MEDS: methylPREDNISolone 1,000 MG in DEXTROSE 5% 250 ML IV SCH (14:42)
== END 2020-04-02 16:07 | disposition home or self-care (01) ==
LOC: ED 18:21 → 2N 18:21 → SUATTDRO 21:49 → 2N 22:18
DX: Z88.8 Allergy status to other drugs, medicaments and biological substances; Z88.2 Allergy status to sulfonamides; I12.9 Hypertensive chronic kidney disease with stage 1 through stage 4 chronic kidney disease, or unspecified chronic kidney disease; E87.6 Hypokalemia; Z79.899 Other long term (current) drug therapy; K50.90 Crohn's disease, unspecified, without complications; N18.3 Chronic kidney disease, stage 3 (moderate); Z79.52 Long term (current) use of systemic steroids; Z86.73 Personal history of transient ischemic attack (TIA), and cerebral infarction without residual deficits; G37.9 Demyelinating disease of central nervous system, unspecified; Z79.82 Long term (current) use of aspirin